=== PATIENT | female | born 1950 | race Caucasian/White ===

== ENCOUNTER → 2017-06-11 | Outpatient (CLI) | payer MEDICAID, SELFPAY | PROVIDERS: Visit Provider Nurse Practitioner Family | DX: Z51.81 Encounter for therapeutic drug level monitoring (principal) | CPT/HCPCS: 80053; 85025 ==

== ENCOUNTER 2017-08-02 18:08 | Emergency (ER) | payer MEDICAID, SELFPAY ==
[2017-08-02 19:34] VITALS: BP 124/90; PULSE 70; RESP 18; RESP 20; TEMP 36.8; O2SAT 98; O2SAT 99; BMI 75.2
--- NOTE | 2017-08-02 19:51 | HMH.EDUTC ---
[facility] [place] Disposition Clinical Impression: URI (upper respiratory infection) Qualifiers: URI type: unspecified URI Qualified Code(s): J06.9 - Acute upper respiratory infection, unspecified Disposition: Home, Self-Care Condition on Discharge: Good Instructions: Sore Throat, DI for Sinusitis, DI for Nasal Congestion Additional Instructions: * Monitor Temp. Tylenol and/or Ibuprofen as needed. ER if fever is no less than 101 despite alternating Tylenol and Ibuprofen * Encourage fluids, water, Gatorade, powerade, pedialyte if infant/toddler/or child * Warm salt water gargles for throat irritation *Warm fluids *Sore throat lozenges *Sleep elevated *humidifier or vaporizer Lots of rest Increase fluids, water, Gatorade, powerade Follow up IMMEDIATELY for new or worsening of symptoms OR no noticeable improvement over the next 48-72 hours. 911 immediately for any life threatening symptoms such as chest pain or difficulty breathing Prescriptions: Azithromycin [Z-Hay 250mg Tab] 250 mg PO UD DOSE PK #6 tab predniSONE [Prednisone 20mg Tab] 20 mg PO BID #10 tab Referrals: Lele Blanca MD [Primary Care Provider] - Time of Disposition: 20:39 Medical Decision Making - Medical Records Medical records reviewed: Yes: I reviewed the patient's medical records. Vital Signs: 08/02/17 19:34 Temperature 98.3 F Temperature Source Oral Pulse Rate [Radial] 70 Respiratory Rate 20 Blood Pressure [Right Arm] 124/90 Blood Pressure Mean [Right Arm] 101 Blood Pressure Source [Right Arm] Automatic Cuff Blood Pressure Position [Right Arm] Sitting 02 Sat by Pulse Oximetry 99 Oxygen Delivery Method Room Air - Lab Data Lab Results 08/02/17 19:33: Influenza Type A Ag Negative, Influenza Type B Ag Negative - Dylan Inquiry Pt receiving controlled substance: No Dylan was queried for this patient: No - Reevaluation(s) Reevaluation #1: Pharmacy paged x 2 awaiting call back Time: 20:35 Reevaluation #3: Still no call back from pharmacy Consulted with ER physician and family Doctor Dr Blanca and advised to give patient Azithromycin and Prednisone and have her follow up in the clinic on Thursday [facility] [place] HPI - General Stated complaint: cough, losing voice Mode of Arrival: Ambulatory Source of Information: Patient HEENT Symptoms (Recalled from RN notes): Yes Resp Symptoms (Recalled from RN notes): No Skin Symptoms (Recalled from RN notes): No MS Symptoms (Recalled from RN notes): No Functional Status (Recalled from RN notes): GOOD - History of Present Illness Provider Complaint: Patient states that she has been having sinus pain and pressure like feeling in her sinuses along with cough, congestion along with sore throat and irritation State that she was worried that she may have the flu but feels like she may be having sinus issues again too - Related Data Home Medications Medication Instructions Recorded Confirmed albuterol sulfate HFA 90 2 puff INHALATION Q6H 07/08/17 mcg/actuation aerosol inhaler aspirin 81 mg tablet,delayed 81 mg PO QDAY 07/08/17 release bisoprolol fumarate 5 mg tablet 5 mg PO QDAY 07/08/17 famotidine 20 mg tablet 20 mg PO BID 07/08/17 fluticasone 50 mcg/actuation nasal 50 mcg INTRANASAL ONCE 07/08/17 spray,suspension folic acid 1 mg tablet 1 mg PO QDAY 07/08/17 hydroxychloroquine 200 mg tablet 200 mg PO QDAY 07/08/17 loratadine 10 mg tablet 10 mg PO QDAY 07/08/17 losartan 100 mg tablet 100 mg PO QDAY 07/08/17 methotrexate sodium 2.5 mg tablet 20 mg PO QWEEK tab 07/08/17 Previous Rx's Medication Instructions Recorded Azithromycin [Z-Hay 250mg Tab] 250 mg PO UD DOSE PK #6 tab 08/02/17 predniSONE [Prednisone 20mg 20 mg PO BID #10 tab 08/02/17 Tab] Allergies Allergy/AdvReac Type Severity Reaction Status Date / Time No Known Allergies Allergy Unverified 06/09/17 15:20 - Worker's Comp Is this a Worker's Comp case?: No Is this an H Worker's Comp?:
[2017-08-02 19:55] LABS: UTC Influenza A Antigen Negative (Negative); UTC Influenza B Antigen Negative (Negative)
--- NOTE | 2017-08-02 20:00 | ED_ITS ---
[facility] [place] Disposition Clinical Impression: URI (upper respiratory infection) Qualifiers: URI type: unspecified URI Qualified Code(s): J06.9 - Acute upper respiratory infection, unspecified Disposition: Home, Self-Care Condition on Discharge: Good Instructions: Sore Throat, DI for Sinusitis, DI for Nasal Congestion Additional Instructions: * Monitor Temp. Tylenol and/or Ibuprofen as needed. ER if fever is no less than 101 despite alternating Tylenol and Ibuprofen * Encourage fluids, water, Gatorade, powerade, pedialyte if infant/toddler/or child * Warm salt water gargles for throat irritation *Warm fluids *Sore throat lozenges *Sleep elevated *humidifier or vaporizer Lots of rest Increase fluids, water, Gatorade, powerade Follow up IMMEDIATELY for new or worsening of symptoms OR no noticeable improvement over the next 48-72 hours. 911 immediately for any life threatening symptoms such as chest pain or difficulty breathing Prescriptions: Azithromycin [Z-Hay 250mg Tab] 250 mg PO UD DOSE PK #6 tab predniSONE [Prednisone 20mg Tab] 20 mg PO BID #10 tab Referrals: Lele Blanca MD [Primary Care Provider] - Time of Disposition: 20:39 Medical Decision Making - Medical Records Medical records reviewed: Yes: I reviewed the patient's medical records. Vital Signs: 08/02/17 19:34 Temperature 98.3 F Temperature Source Oral Pulse Rate [Radial] 70 Respiratory Rate 20 Blood Pressure [Right Arm] 124/90 Blood Pressure Mean [Right Arm] 101 Blood Pressure Source [Right Arm] Automatic Cuff Blood Pressure Position [Right Arm] Sitting 02 Sat by Pulse Oximetry 99 Oxygen Delivery Method Room Air - Lab Data Lab Results 08/02/17 19:33: Influenza Type A Ag Negative, Influenza Type B Ag Negative - Dylan Inquiry Pt receiving controlled substance: No Dylan was queried for this patient: No - Reevaluation(s) Reevaluation #1: Pharmacy paged x 2 awaiting call back Time: 20:35 Reevaluation #3: Still no call back from pharmacy Consulted with ER physician and family Doctor Dr Blanca and advised to give patient Azithromycin and Prednisone and have her follow up in the clinic on Thursday [facility] [place] HPI - General Stated complaint: cough, losing voice Mode of Arrival: Ambulatory Source of Information: Patient HEENT Symptoms (Recalled from RN notes): Yes Resp Symptoms (Recalled from RN notes): No Skin Symptoms (Recalled from RN notes): No MS Symptoms (Recalled from RN notes): No Functional Status (Recalled from RN notes): GOOD - History of Present Illness Provider Complaint: Patient states that she has been having sinus pain and pressure like feeling in her sinuses along with cough, congestion along with sore throat and irritation State that she was worried that she may have the flu but feels like she may be having sinus issues again too - Related Data Home Medications Medication Instructions Recorded Confirmed albuterol sulfate HFA 90 2 puff INHALATION Q6H 07/08/17 mcg/actuation aerosol inhaler aspirin 81 mg tablet,delayed 81 mg PO QDAY 07/08/17 release bisoprolol fumarate 5 mg tablet 5 mg PO QDAY 07/08/17 famotidine 20 mg tablet 20 mg PO BID 07/08/17 fluticasone 50 mcg/actuation nasal 50 mcg INTRANASAL ONCE 07/08/17 spray,suspension folic acid 1 mg tablet 1 mg PO QDAY 07/08/17 hydroxychloroquine 200 mg tablet 200 m
--- NOTE | 2017-08-02 20:16 | PC.NURSE ---
PHARMACY HAS BEEN PAGED TWICE. 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 WE STILL HAVE NOT RECEIVED A CALL BACK.
--- NOTE | 2017-08-02 20:37 | PC.NURSE ---
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
[2017-08-02 20:43] VITALS: BP 124/90; PULSE 70; RESP 20; TEMP 36.8; O2SAT 99
== END 2017-08-02 20:46 | disposition home or self-care (01) ==
PROVIDERS: Emergency Provider Nurse Practitioner; Family Provider Emergency Medicine; PCP Emergency Medicine
DX: J06.9 Acute upper respiratory infection, unspecified (principal); I10 Essential (primary) hypertension; E78.5 Hyperlipidemia, unspecified
CPT/HCPCS: 87804; 99202

== ENCOUNTER → 2018-05-17 11:21 | Outpatient (CLI) | payer MEDICARE, SELFPAY ==
--- NOTE | 2018-05-17 11:24 | XR_ITS ---
XR chest 2V HISTORY: Cough and congestion ITS.REASON: Cough ORDERING PHYSICIAN: LILO Brooke PATIENT AGE: 67 years COMPARISON: 01/15/2018 FINDINGS: The cardiomediastinal silhouette and pulmonary vascularity are within normal limits. The lungs are clear without infiltrates, suspicious nodules, or pleural effusions. No acute bony abnormalities. IMPRESSION: Negative chest, no acute finding
== END ==
PROVIDERS: PCP Physician Assistant; Visit Provider Physician Assistant
DX: R05 Cough (principal)
CPT/HCPCS: 71046; 87070; 87205

== ENCOUNTER → 2018-05-17 13:23 | Outpatient (CLI) | payer MEDICARE, SELFPAY | PROVIDERS: Visit Provider Physician Assistant | DX: R05 Cough (principal) ==

== ENCOUNTER → 2018-06-07 09:20 | Outpatient (CLI) | payer MEDICARE, SELFPAY ==
[2018-06-07 10:52] LABS: Alanine Aminotransferase 27 U/L (12-78); Albumin Level 3.8 gm/dL (3.4-5.0); Alkaline Phosphatase 92 U/L (46-116); Aspartate Amino Transferase 15 U/L (15-37); Bilirubin,Direct 0.2 mg/dL (0.0-0.2); Bilirubin,Indirect 0.3 mg/dL (0.0-0.9); Bilirubin,Total 0.5 mg/dL (0.2-1.0); Chol/HDL Ratio 3.8 (1-3.5); Cholesterol 157 mg/dL (140-200); HDL Cholesterol 41 mg/dL (29-89); LDL Cholesterol 93 mg/dL (0-130); Total Protein,Serum 6.7 gm/dL (6.4-8.2); Triglycerides 116 mg/dL (30-200); VLDL Cholesterol 23 mg/dL (0-40)
== END ==
PROVIDERS: Visit Provider Internal Medicine Cardiovascular Disease
DX: E78.5 Hyperlipidemia, unspecified (principal); I10 Essential (primary) hypertension
CPT/HCPCS: 36415; 80061; 80076

== ENCOUNTER → 2019-02-15 09:38 | Outpatient (CLI) | payer MEDICARE, SELFPAY ==
--- NOTE | 2019-02-15 09:41 | US_ITS ---
APPROVED REPORT [employer]: Mara Vallejo RDCS Indications Claudication: Rest Pain: skin changes Risk Factors Hypertension History of Smoking Pressures/Indices Right Indices Left Indices Brachial 155.00 mmHg Brachial 168.00 mmHg Low Thigh 145.00 mmHg 0.86 Low Thigh 138.00 mmHg 0.82 Calf 160.00 mmHg 0.95 Calf 168.00 mmHg 1.00 Ankle(PT) 172.00 mmHg 1.02 Ankle(PT) 173.00 mmHg 1.03 Ankle(DP) 160.00 mmHg 0.95 Ankle(DP) 157.00 mmHg 0.93 Digit 104.00 mmHg 0.62 Digit 112.00 mmHg 0.67 Findings R NICKOLAS 1.0 L NICKOLAS 1.0 R TBI .6 L TBI .7 Conclusion NORMAL Electronically signed by : Jovon Snider MD 02/15/2019 19:16:55
--- NOTE | 2019-02-15 10:04 | XR_ITS ---
PROCEDURE: XR FOOT WT BEARING LT 3V CLINICAL INDICATION: pain COMPARISON: No exams were available for comparison FINDINGS: No fracture or dislocation. No lytic or blastic change. There is normal mineralization. The joint spaces are well-preserved. No significant degenerative/arthritic changes. No erosive changes evident. Other findings:None. IMPRESSION: No acute findings. Dictated by: Jovon Snider MD 02/15/2019 11:01 Signed by: <Electronically signed by Jovon Snider MD in [place]> 02/15/2019 11:01
--- NOTE | 2019-02-15 10:04 | XR_ITS ---
PROCEDURE: XR FOOT WT BEARING RT 3V CLINICAL INDICATION: pain COMPARISON: No exams were available for comparison FINDINGS: No fracture or dislocation. No lytic or blastic change. There is normal mineralization. The joint spaces are well-preserved. No significant degenerative/arthritic changes. No erosive changes evident. Other findings:None. IMPRESSION: No acute findings. Dictated by: Jovon Snider MD 02/15/2019 11:02 Signed by: <Electronically signed by Jovon Snider MD in [place]> 02/15/2019 11:02
== END ==
PROVIDERS: PCP Emergency Medicine; Visit Provider Podiatrist
DX: R09.89 Other specified symptoms and signs involving the circulatory and respiratory systems (principal); M79.672 Pain in left foot; M79.671 Pain in right foot
CPT/HCPCS: 73630; 93923

== ENCOUNTER 2019-11-01 19:37 | Emergency (ER) | payer MEDICARE, SELFPAY ==
[2019-11-01 19:38] VITALS: BP 127/75; PULSE 100; RESP 19; TEMP 36.8; O2SAT 98; BMI 31.0
--- NOTE | 2019-11-01 19:50 | XR_ITS ---
PROCEDURE: XR THORACIC SPINE 3V CLINICAL INDICATION: FALL Posttraumatic pain COMPARISON: CXR2V XR chest 2V from 01/15/2018 FINDINGS: There is mild compression deformity involving what appears to represent T6 which appears slightly greater than when compared to a prior lateral chest radiograph of 01/16/2018. No obvious retropulsion. There is mild degenerative disc disease in the mid and upper thoracic spine. IMPRESSION: Degenerative changes with compression deformity of T6 of approximately 25 percent without obvious retropulsion. MRI may confirm if this is acute or chronic. Dictated by: Jovon Snider MD 11/02/2019 07:40 Electronically signed by Jovon Snider MD in [place] 11/02/2019 07:40
--- NOTE | 2019-11-01 19:59 | HMH.EDUTC ---
[facility] [place] Disposition Clinical Impression: Back pain Qualifiers: Back pain location: back pain in unspecified location Chronicity: unspecified Back pain laterality: unspecified Qualified Code(s): M54.9 - Dorsalgia, unspecified Disposition: Home, Self-Care Condition on Discharge: Good Instructions: Contusion, Low Back Pain, DI for Low Back Pain, DI for Contusion, DI for Chronic Pain -- Adult, DI for Thoracic Back Pain Additional Instructions: *Ibuprofen sol 6 hours with meal as needed for pain/inflammation if your doctor has told you that you can take it, if you cannot take Ibuprofen/Motrin then take Tylenol *Ice 20 minutes every 2 hours for the first 48 hours after the initial injury followed by moist heat every 20 minutes 3-4 times a day to affected area You may try over the counter Muscle rubs like [place] or Biofreeze, these may help with muscle tension and soreness associated with muscles *Keep this area active, no movement leads to more stiffness, However take it easy and avoid heavy lifting pushing or pulling *Follow up with you family doctor if no improvement for further treatment Return if needed Straight to ER if any life threatening symptoms You may call back to the [facility] tomorrow for your official reading of your xray Referrals: Roland Reddy APRN [Primary Care Provider] - As needed Time of Disposition: 21:09 Medical Decision Making - Dylan Inquiry Pt receiving controlled substance: No Dylan was queried for this patient: No Vital Signs: 11/01/19 19:38 11/01/19 21:06 Temperature 98.2 F 98.2 F Temperature Source Oral Oral Pulse Rate 100 H Pulse Rate [Radial] 100 H Respiratory Rate 19 19 Blood Pressure 127/75 Blood Pressure [Right Arm] 127/75 Blood Pressure Mean [Right Arm] 92 Blood Pressure Source Automatic Cuff Blood Pressure Source [Right Arm] Automatic Cuff Blood Pressure Position Sitting Blood Pressure Position [Right Arm] Sitting 02 Sat by Pulse Oximetry 98 Oxygen Delivery Method Room Air Room Air Orders (Tests/Meds): ED MEDICATIONS Discontinued Medications Generic Name Dose Route Start Last Admin Trade Name Freq PRN Reason Stop Dose Admin Methylprednisolone Sodium Succinate 125 mg 11/01/19 21:05 11/01/19 21:05 Solu-Medrol 125mg/2ml Vial IM 11/01/19 21:06 125 mg ONCE ONE Administration ORDERS Category Date Time Status XR lumbar spine 2-3V Stat Exams 11/01/19 20:00 Taken XR thoracic spine 3V Stat Exams 11/01/19 19:50 Taken - Radiology Data #1 Image(s): T-Spine Image Reviewed: Yes I reviewed the patient's radiology image w/the ED provider Discussed with Dr Blanca, no acute fracture, chronic changes #2 Image(s): L-Spine Image Reviewed: Yes I reviewed the patient's radiology image w/the ED provider Discussed with Dr Blanca no acute findings, chronic changes - Reevaluation(s) Time: 20:00 Reevaluation #1: Requested ER physician to view xrays advised Physician unavailable at this time awaiting call back Time: 21:04 Reevaluation #3: Patient reports that she has taken SoluMedrol before without complications or reactions patient still refusing medication for pain states that she is ok right now [facility] [place] HPI - General Stated complaint: AO [id number] fellk injured back and head Time Seen by Provider: 11/01/19 19:59 Mode of Arrival: Ambulatory Source of Information: Patient Limitations: No Limitations Description of Symptoms (Recalled from Triage Doc. by RN): fell at home on thursday HEENT Symptoms (Recalled from RN notes): No Resp Symptoms (Recalled from RN notes): No Skin Symptoms (Recalled from RN notes): No MS Symptoms (Recalled from RN notes): Yes Functional Status (Recalled from RN notes): wnl - History of Present Illness Provider Complaint: Patient state that she fell at home last Thu. State that she landed on her back Denies LOC or head injury. States that ever since she has been having pain in her mid and lower back area States that she
--- NOTE | 2019-11-01 20:00 | XR_ITS ---
PROCEDURE: XR LUMBAR SPINE 2-3V CLINICAL INDICATION: FALL Posttraumatic pain COMPARISON: No exams were available for comparison FINDINGS: There is degenerative disc disease at L5-S1. There is 5 mm anterolisthesis of L4 on L5. No acute fracture or dislocation is evident. No lytic or blastic change. There are mild facet arthritic changes at the lumbosacral junction. There is generalized vascular calcification. IMPRESSION: Degenerated changes as detailed above, no acute finding Dictated by: Jovon Snider MD 11/02/2019 07:38 Electronically signed by Jovon Snider MD in [place] 11/02/2019 07:38
[2019-11-01 21:06] VITALS: BP 127/75; PULSE 100; RESP 19; TEMP 36.8; O2SAT 98
== END 2019-11-01 21:12 | disposition home or self-care (01) ==
PROVIDERS: Emergency Provider Nurse Practitioner; PCP Nurse Practitioner Family
DX: M54.9 Dorsalgia, unspecified (principal); W01.0XXA Fall on same level from slipping, tripping and stumbling without subsequent striking against object, initial encounter; Y92.019 Unspecified place in single-family (private) house as the place of occurrence of the external cause; K21.9 Gastro-esophageal reflux disease without esophagitis; I10 Essential (primary) hypertension; E78.5 Hyperlipidemia, unspecified; J45.909 Unspecified asthma, uncomplicated; Z87.891 Personal history of nicotine dependence; Z79.899 Other long term (current) drug therapy
CPT/HCPCS: G0463; 72072; 72100; 96372; 99202

== ENCOUNTER 2019-11-08 11:57 | Emergency (ER) | payer MEDICARE, SELFPAY ==
[2019-11-08 11:59] VITALS: BP 154/80; PULSE 97; RESP 20; TEMP 36.6; O2SAT 98; BMI 34.9
--- NOTE | 2019-11-08 12:10 | ECG_ITS ---
APPROVED REPORT Exam: Resting ECG HR:80 bpm ECG Measurements Heart Rate 80 AXES IL 102 P 46 QRSd 76 QRS 52 QT 376 T 82 QTc 433 <Conclusion> Sinus rhythm with short IL Nonspecific ST and T wave abnormality Abnormal ECG Electronically signed by : Jaden Newman, 11/09/2019 08:27:11
--- NOTE | 2019-11-08 12:14 | HMH.EDGENADL ---
ED Disposition Clinical Impression: Cholelithiasis Qualifiers: Cholelithiasis location: gallbladder Cholecystitis presence: without cholecystitis Biliary obstruction: without biliary obstruction Qualified Code(s): K80.20 - Calculus of gallbladder without cholecystitis without obstruction Disposition: Home, Self-Care Condition on Discharge: Good Instructions: Fat-Restricted Diet, DI for Gallstones Additional Instructions: Follow-up with surgery, Dr. Cornell, call today to make appointment. Low-fat diet. Percocet and Zofran as needed for pain and nausea. Return to the emergency room if uncontrollable abdominal pain, vomiting, fever, or jaundice. Prescriptions: Oxycodone HCl/Acetaminophen [Percocet 5/325mg tablet] 1 tab PO Q6HP PRN #10 tab PRN Reason: Moderate To Severe Pain Transmission Status: Received by [facility] Ondansetron [Zofran 4mg ODT] 4 mg PO TIDP PRN #10 tab.rapdis PRN Reason: Nausea And Vomiting Transmission Status: [facility] Referrals: Lele Blanca MD [Primary Care Provider] - Raoul Cornell MD [Staff Physician] - - Critical Care Critical Care Time: No Attestation: On , the high probability of a clinically significant, sudden or life threatening deterioration of the following system(s) required my full and direct attention, intervention and personal management. The time I documented below is in addition to time spent performing reported procedures but includes the following listed in this critical care notation. Medical Decision Making - Medical Records Medical records reviewed: Yes: I reviewed the patient's medical records. - Dylan Inquiry Pt receiving controlled substance: Yes Dylan was queried for this patient: No Reason not queried -: Emergent pt cond-no time Risks and benefits of using a controlled substance: were not discussed with pt by me Vital Signs: 11/08/19 11:59 11/08/19 14:34 Temperature 97.9 F 98.6 F Temperature Source Oral Oral Pulse Rate 66 Pulse Rate [Right] 97 H Respiratory Rate 20 16 Blood Pressure 150/63 H Blood Pressure [Right Arm] 154/80 H Blood Pressure Mean [Right Arm] 104 Blood Pressure Source Automatic Cuff Blood Pressure Position Sitting 02 Sat by Pulse Oximetry 98 Oxygen Delivery Method Room Air - Lab Data Lab results reviewed: Yes: I reviewed the patient's lab results. Lab Results 11/08/19 12:00: Urine Color Yellow, Urine Appearance Clear, Urine pH 5.5, Ur Specific [place] >= 1.030, Urine Protein Negative, Urine Glucose (UA) Negative, Urine Ketones Negative, Urine Blood Negative, Urine Nitrate Negative, Urine Bilirubin Negative, Urine Urobilinogen 0.2, Ur Leukocyte Esterase Negative, Urine RBC 3-5, Urine WBC Occasional, Ur Squamous Epith Cells 5-10, Ur Transition Epith Cell Occ, Urine Bacteria None 11/08/19 12:18: WBC 7.0, RBC 3.87 L, Hgb 12.5, Hct 39.6, MCV 102.2 H, MCH 32.3 H, MCHC 31.6 L, RDW 15.9, Plt Count 245, MPV 9.4, Neut % (Auto) 79.5, Lymph % (Auto) 14.7, [place] % (Auto) 3.6, Eos % (Auto) 1.5, Baso % (Auto) 0.6, Neut # (Auto) 5.5, Lymph # (Auto) 1.0, [place] # (Auto) 0.3, Eos # (Auto) 0.1, Baso # (Auto) 0.0 11/08/19 12:18: Sodium 139, Potassium 4.1, Chloride 105, Carbon Dioxide 27, Anion Gap 11.1, BUN 17, Creatinine 1.00, Estimated Creat Clear 83, Estimated GFR 55 L, Est GFR ( Amer) 67, Glucose 166 H, Calcium 9.0, Total Bilirubin 1.0, AST 74 H, ALT 35, Alkaline Phosphatase 162 H, Troponin I < 0.01, Total Protein 7.4, Albumin 4.1, Globulin 3.3 H, Albumin/Globulin Ratio 1.2, Amylase 147 H, Lipase 268 Result diagrams: 11/08/19 12:18 11/08/19 12:18 Orders (Tests/Meds): ED MEDICATIONS Discontinued Medications Generic Name Dose Route Start Last Admin Trade Name Freq PRN Reason Stop Dose Admin Famotidine 20 mg 11/08/19 12:21 11/08/19 12:35 Pepcid 20mg/2ml Vial IV 11/08/19 12:22 20 mg ONCE ONE Administration Ioversol 75 ml 11/08/19 13:34 11/08/19 13:35 Rad-Op
--- NOTE | 2019-11-08 12:21 | CT_ITS ---
PROCEDURE: CT ABDOMEN PELVIS W CON CLINICAL INDICATION: abd pain COMPARISON: ABDPELW/O CT ABD PELVIS W/O CONTRAST from 01/24/2017 TECHNIQUE: IV Contrast: 75ML OPTIRAY 350 Oral Contrast none given Axial images obtained with sagittal and coronal reformats. All CT scans at the facility use one or more dose reduction, viz: automated exposure control, ma/kV adjustment per patient size (including targeted exams where dose is matched to indication, i.e. head), or iterative reconstruction technique. FINDINGS: Lower thorax: No acute finding ABDOMEN: Liver: No masses or biliary dilatation. Gallbladder: The gallbladder is moderately distended and showing 3-4 small calcified gallstones near the apex of the gallbladder. Pancreas: No masses or peripancreatic fluid collections. Spleen: unremarkable Adrenals: unremarkable Kidneys/ureters: The kidneys are normal size and show symmetrical function. There is a small benign-appearing cortical cyst upper pole right kidney measuring 1.1 cm in diameter. ABDOMEN & PELVIS: Stomach bowel: The stomach is moderately distended with ingested food particles and fluid. The small bowel appears normal. The appendix is normal in caliber and partially air-filled. There is a moderately large amount stool in the cecum and ascending colon with minimal scattered stool and gas seen in the remainder of the colon. There is mild diverticulosis of the lower descending and sigmoid colon but there is no evidence of diverticulitis. Peritoneum: No abnormal fluid collections. No obvious inflammatory changes. No free air. Lymph nodes: No enlarged lymph nodes apparent. Vasculature: There is minimal scattered arteriosclerotic calcification of the lower abdominal aorta and proximal common iliac arteries. There is no aneurysm. Bones: There is disc space narrowing and anterior osteophytic spurring at the L5-S1 level PELVIS: Reproductive: unremarkable Bladder: The urinary bladder is partially decompressed but otherwise appears normal. There is no free fluid in the cul-de-sac. Appendix: Normal IMPRESSION: Cholelithiasis with no findings to suggest acute cholecystitis, mild diffuse diverticulosis lower descending and sigmoid colon without evidence of diverticulitis. Dictated by: Dr. Rasheed Lu MD 11/08/2019 13:[address] Rasheed Lu MD in [place] 11/08/2019 13:55
[2019-11-08 12:27] LABS: Microscopic, Urine URINE MICROSCOPIC (MICROSCOPIC)
[2019-11-08 12:28] LABS: Appearance,Urine CLEAR (Clear); Bilirubin,Urine Negative (Negative); Blood, Urine Negative (Negative); Color,Urine YELLOW (Yellow); Glucose,Urine (UA) Negative (Negative); Ketones,Urine Negative (Negative); Leukocyte Esterase,Urine Negative (Negative); Nitrate,Urine Negative (Negative); PH,Urine 5.5 (5.0-8.5); Protein,Urine Negative (Negative); Specific Gravity, Urine >= 1.030 (1.005-1.030); Urobilinogen,Urine 0.2 EU/dl (0.2)
[2019-11-08 12:30] LABS: Basophils % 0.6 % (0.1-2.0); Chloride 105 mmol/L (98-107); Eosinophils # 0.1 K/mm3 (0.0-0.4); Eosinophils % 1.5 % (0.1-12.0); Hematocrit 39.6 % (37.0-47.0); Hemoglobin 12.5 g/dL (12.2-16.2); Lymphocytes % 14.7 % (10-50); Mean Corpuscular HGB Conc 31.6 g/dL (31.8-35.4); Mean Corpuscular Hemoglobin 32.3 pg (27.0-31.2); Mean Corpuscular Volume 102.2 fl (81-99); Mean Platelet Volume 9.4 fl (7.4-10.4); Monocytes # 0.3 K/mm3 (0.1-1.0); Monocytes % 3.6 % (1.7-9.3); Neutrophils # 5.5 K/mm3 (1.8-7.8); Neutrophils % 79.5 % (37.0-80.0); Platelet Count 245 K/mm3 (142-424); Potassium 4.1 mmoL/L (3.5-5.1); Red Blood Count 3.87 M/mm3 (4.20-5.40); Red Cell Distribution Width 15.9 % (11.5-17.5); Sodium 139 mmol/L (136-145)
[2019-11-08 12:32] LABS: Amylase 147 U/L (30-110)
[2019-11-08 12:33] LABS: Alanine Aminotransferase 35 U/L (12-78); Albumin Level 4.1 g/dl (3.5-5.0); Albumin/Globulin Ratio 1.2 (1.1-1.8); Alkaline Phosphatase 162 U/L (38-126); Anion Gap 11.1 mEq/L (5-15); Aspartate Amino Transferase 74 U/L (14-36); Blood Urea Nitrogen 17 mg/dl (7-17); Carbon Dioxide 27 mmol/L (22.0-30.0); Creatinine Clearance Estimated 83 mL/min (50-200); Estimated Glomerular Filt Rate 55 ml/min (>60); GFR (African American) 67 ML/MIN (>60); Globulin 3.3 g/dL (1.3-3.2); Glucose 166 mg/dl (74-100); Lipase 268 U/L (23-300); Total Protein,Serum 7.4 g/dl (6.3-8.2)
[2019-11-08 12:47] LABS: Troponin I < 0.01 ng/ml (0.00-0.034)
[2019-11-08 13:08] LABS: Transitional Epi Cells,Urine OCC #/lpf (0-3); WBC,Urine Occasional #/hpf (0-3)
[2019-11-08 14:34] VITALS: BP 150/63; PULSE 66; RESP 16; TEMP 37; O2SAT 98
== END 2019-11-08 14:35 | disposition home or self-care (01) ==
PROVIDERS: Emergency Provider Emergency Medicine; PCP Emergency Medicine
DX: K80.20 Calculus of gallbladder without cholecystitis without obstruction (principal); K21.9 Gastro-esophageal reflux disease without esophagitis; E78.5 Hyperlipidemia, unspecified; I10 Essential (primary) hypertension; J45.909 Unspecified asthma, uncomplicated; Z87.891 Personal history of nicotine dependence
CPT/HCPCS: 74177; 80053; 81001; 82150; 83690; 84484; 85025; 93005; 96374; 96375; 99283; J2405; Q9967

== ENCOUNTER → 2019-11-17 07:48 | Outpatient (CLI) | payer MEDICARE, SELFPAY ==
--- NOTE | 2019-11-17 07:48 | US_ITS ---
PROCEDURE: US GALLBLADDER CLINICAL INDICATION: Right upper quad pain Nausea, right upper quadrant pain COMPARISON: No exams were available for comparison FINDINGS: Pancreas: Unremarkable/Not well seen Liver: Unremarkable. There is appropriate direction of blood flow within a non dilated portal vein. Right kidney: Unremarkable appearing. No hydronephrosis. Gallbladder: Gallstones are present along with sludge in the gallbladder. No gallbladder wall thickening, pericholecystic fluid, or biliary dilatation is evident. Common bile duct is 5 mm. IMPRESSION: Cholelithiasis with gallbladder sludge Dictated by: Jovon Snider MD 11/17/2019 13:49 Electronically signed by Jovon Snider MD in [place] 11/17/2019 13:49
== END ==
PROVIDERS: PCP Emergency Medicine; Visit Provider Surgery
DX: K80.20 Calculus of gallbladder without cholecystitis without obstruction (principal)
CPT/HCPCS: 76705

== ENCOUNTER → 2019-11-20 09:55 | Outpatient (CLI) | payer MEDICARE, SELFPAY ==
[2019-11-20 10:39] LABS: Basophils # 0.1 K/mm3 (0-0.2); Basophils % 2.1 % (0.1-2.0); Eosinophils # 0.3 K/mm3 (0.0-0.4); Eosinophils % 6.5 % (0.1-12.0); Hematocrit 39.7 % (37.0-47.0); Hemoglobin 13.2 g/dL (12.2-16.2); Lymphocytes # 1.5 K/mm3 (0.7-4.5); Lymphocytes % 33.7 % (10-50); Mean Corpuscular HGB Conc 33.2 g/dL (31.8-35.4); Mean Corpuscular Volume 102.5 fl (81-99); Monocytes # 0.4 K/mm3 (0.1-1.0); Monocytes % 7.8 % (1.7-9.3); Neutrophils # 2.2 K/mm3 (1.8-7.8); Neutrophils % 49.9 % (37.0-80.0); Platelet Count 194 K/mm3 (142-424); Red Blood Count 3.87 M/mm3 (4.20-5.40); Red Cell Distribution Width 15.5 % (11.5-17.5); White Blood Count 4.5 K/mm3 (4.8-10.8)
[2019-11-20 10:45] LABS: Chloride 108 mmol/L (98-107); Potassium 3.9 mmoL/L (3.5-5.1); Sodium 140 mmol/L (136-145)
[2019-11-20 10:47] LABS: Amylase 299 U/L (30-110)
[2019-11-20 10:48] LABS: Alanine Aminotransferase 24 U/L (12-78); Albumin Level 4.2 g/dl (3.5-5.0); Albumin/Globulin Ratio 1.3 (1.1-1.8); Alkaline Phosphatase 161 U/L (38-126); Anion Gap 9.9 mEq/L (5-15); Aspartate Amino Transferase 32 U/L (14-36); Bilirubin,Total 0.8 mg/dl (0.2-1.3); Blood Urea Nitrogen 13 mg/dl (7-17); Calcium 9.4 mg/dl (8.4-10.2); Carbon Dioxide 26 mmol/L (22.0-30.0); Estimated Glomerular Filt Rate 55 ml/min (>60); GFR (African American) 67 ML/MIN (>60); Globulin 3.2 g/dL (1.3-3.2); Glucose 120 mg/dl (74-100); Lipase 317 U/L (23-300); Total Protein,Serum 7.4 g/dl (6.3-8.2)
[2019-11-20 11:11] LABS: Coronavirus 19 IgG Antibody Negative (Negative); Coronavirus 19 IgM Antibody Negative (Negative)
== END ==
PROVIDERS: PCP Emergency Medicine; Visit Provider Surgery
DX: K80.20 Calculus of gallbladder without cholecystitis without obstruction (principal); Z03.818 Encounter for observation for suspected exposure to other biological agents ruled out
CPT/HCPCS: 80053; 82150; 83690; 85025; 86328

== ENCOUNTER 2019-11-23 08:33 | Day surgery (SDC) | payer MEDICARE, SELFPAY ==
[2019-11-22 09:28] VITALS: BMI 33.3
[2019-11-23] VITALS (18 sets, daily range): BP systolic 85–140; BP diastolic 47–70; PULSE 70–90; RESP 12–20; TEMP 36.1–43; O2SAT 93–99
--- NOTE | 2019-11-23 09:22 | HMH.ANESCL ---
[facility] Anesthesia Checklist - Patient Identification Patient Identification: Arm Band - Structural Data Admitted From: Home Planned Operative Procedure/s: laparoscopic cholecystectomy Consent for Planned Operative Procedure(s) Verified: Yes Verified Documents: Surgical Consent, History and Physical - NPO Status Verified Time NPO: 00:00 - Additional verifications Anesthesia Reactions: No Hx Blood Transfusions: No Blood Transfusion Reaction: No - Airway Assessment C-Spine Mobility Assessed: Yes (mp2) TMJ Mobility Assessed: Yes Dentition: Good Dentition - Neurological Assessment Level of Consciousness: Awake, Alert - Anesthesia Plan Anesthesia Risk discussed: Yes Anesthesia Plan: Verified ASA Class: II Anesthesia Type: General [facility] History I have reviewed the patient's past medical history: Yes Medical History: Reports:: Asthma, Gastroesophageal Reflux Disease(GERD), Hyperlipidemia, Hypertension Denies:: Cancer, Diabetes Mellitus Type 1, Diabetes Mellitus Type 2, Internal Pacemaker, MRSA, Seizures *Have you ever received a pneumonia vaccine?: Yes *Have you received a flu vaccine this season?: Yes Other Medical History: Reports: Other. Denies: Blood Transfusion Reaction Anesthesia experience/problems:: nac Laterality Cases: Bilateral: Other Other Surgeries: Yes: Other (back surgery in 1988). No: Pacemaker Amputation: No Fractures: No - *Social History Educational Level: Attended High School Smoking Status: Never smoker Alcohol Intake: never Alcohol Intake Frequency:: other Substance Use Type: denies use *Occupational Status:: retired Housing: house Household Members: spouse *Travel in the last 8 weeks: None Family Hx:: Unable to obtain
--- NOTE | 2019-11-23 10:54 | XR_ITS ---
PROCEDURE: XR CHOLANGIOGRAM OPERATIVE CLINICAL INDICATION: CHOLANGIOGRAM COMPARISON: No exams were available for comparison FINDINGS: Fluoroscopy time: 28 seconds Images are submitted from the intraoperative cholangiogram showing contrast injected into the cystic duct with good opacification of the common bile duct. No obstructing lesions or internal filling defects evident of the mid and distal common bile duct. Contrast does flow into the duodenum IMPRESSION: Unremarkable intraoperative cholangiogram Dictated by: Jovon Snider MD 11/23/2019 13:48 Electronically signed by Jovon Snider MD in [place] 11/23/2019 13:48
--- NOTE | 2019-11-23 11:03 | HMH.OPNOTE ---
Date of procedure: 11/23/19 Pre-op Diagnosis:: Symptomatic gallstones Post-op Diagnosis:: Same with mild pancreatitis Procedure performed:: Laparoscopic cholecystectomy with intraoperative cholangiogram Surgeon:: Raoul Cornell MD Major Assembly Inspector(s):: Cheryle Morris TEST FIXTURE DESIGNER:: Sergey George Anesthesia: GETA Estimated blood loss (mL): 25 Clinical Note:: Patient is a 68-year-old female referred for gallbladder. Her daughter works in the [place] [employer] here at [facility]. She states that she began noticing some symptomatology after she had sustained a fall with soft tissue bruising on her back about 3 or 4 weeks ago incidentally. She had been seen in the emergency department on 11/08/2019 with symptoms of right upper quadrant pain with associated nausea and belching. Her symptoms are worse postprandially. She does describe some general abdominal cramping. She states that this has been ongoing for some time but the symptoms are new. She has some associated tightness . CT scan in the emergency department revealed findings of cholelithiasis. Of note, laboratory studies revealed of abnormal amylase, alkaline phosphatase, and AST. I had her undergo preoperative ultrasound which revealed gallstones with a 5 mm common bile duct. Repeat liver function tests and amylase and lipase revealed elevated amylase as well as lipase. Plan was made for cholangiogram at the time of cholecystectomy. Operative findings:: She had some appreciable fatty infiltration of liver. She had an appreciably distended gallbladder which was obscured with omental adhesions. Operative note:: Consent was obtained and patient was taken to the operating room. She was given preoperative intravenous antibiotics. In the operating room she was placed in a supine position. General anesthesia was induced via endotracheal tube. Abdomen was prepped and draped in the standard surgical fashion. Subumbilical skin incision was made and while performing abdominal wall lift Veress needle was inserted. CO2 pneumoperitoneum was achieved to 15 mmHg. 11 mm optical trocar was inserted at the umbilicus. Initially the entire right liver was obscured by omentum. Patient was positioned in reverse Trendelenburg and left side down. A couple 5 mm trochars were inserted in the right upper abdomen. 10 mm trocar was inserted in the epigastrium. Omentum was swept inferiorly to expose the liver. She had fatty infiltration of the liver. Fundus of the gallbladder was identified and grasped retracted anteriorly. There were omental adhesions to the gallbladder. These were taken down using blunt dissection with some use of KIRK ultrasonic harmonic flaco to lyse the adhesions to the adjacent liver. Infundibulum/Jefferson's pouch of the gallbladder was retracted anterior laterally. Blunt dissection was carried out at the neck of the gallbladder bluntly incising the visceral peritoneum. There was some fatty infiltration around the neck of the gallbladder. Ultimately the cystic duct was clearly identified as was the cystic artery which was quite close proximity to the cystic duct. Cystic duct was clipped proximal to the gallbladder. Through approximately a 2 mm incision in the right upper abdomen taut cholangiocatheter introducer was inserted. Taut cholangiocatheter was then inserted. Through a small ductotomy in the cystic duct the cholangiocatheter was manipulated into the cystic duct where it was secured with a single Hemoclip. Intraoperative cholangiogram was performed with dilute contrast followed by full-strength contrast. This revealed no apparent filling defect or obstruction. Final report of cholangiogram pending at the time of this dictation. Patient was then repositioned and cholangiocatheter was removed. Cystic duct was multiply clipped and sharply divided. Cystic artery was coagulated with KIRK ultrasonic harmonic flaco and divided. Gallbladder was dissected free from the liver in
--- NOTE | 2019-11-23 11:15 | P.PN_ITS ---
[facility] Anesthesia Record Part I Intake, IV Amount: 1,500 Estimated blood loss (mL): 0 Urine output (mL): 0 Blood Pressure: 114/50 SaO2: 95 Pulse Rate: 87 Respiratory Rate: 12 Temperature: 97.7 F Patient is:: Awake, Stable Stable to PACU at:: 11:10
--- NOTE | 2019-11-23 14:45 | SUR.PHASEI ---
[id number]: no O2 applied [id number]: pt on 4L per NC [id number]: pt on 2L NC 1140: called ORIANA Plata: pt states she cannot breathe, she has O2 sat of 97%-98% on 2L nc, can we order breathing treatment? Sergey says yes, albuterol. Pt anxious 1143: called [facility] 1147: order in computer 1150: Jocelyn Whitten from [facility] in PACU, starts breathing treatment, throughout treatment pt starts spasms and then they stop. Pt anxious. 1209: pt to post op, bedside report to Jennifer Gurrola RN
--- NOTE | 2019-11-24 10:14 | HMH.ANESII ---
[facility] Anesthesia Record Part II Discharge Time: 12:09 Destination: Surgical Day Care (OP Surgery) PACU nurse assessment reviewed?: Yes Patient Condition:: Good Anesthesia Complications:: None Swallowing reflex intact?: Yes Cyanosis?: No Blood Pressure: 108/59 Pulse Rate: 82 Temperature: 97.7 F Mental Status: Alert & Oriented Pain level:: 0 Nausea and/or vomitting:: None Intake, IV Amount: 0
[2019-11-24 10:15] VITALS: BP 108/59; PULSE 82; TEMP 36.5
== END 2019-11-23 13:17 | disposition home or self-care (01) ==
LOC: OR 08:34
PROVIDERS: PCP Emergency Medicine; Visit Provider Surgery
PROC: 0FT44ZZ Resection of Gallbladder, Percutaneous Endoscopic Approach (ICD-10-PCS; CPT 47562; principal; 2019-11-23 10:00)
DX: K85.10 Biliary acute pancreatitis without necrosis or infection (principal); K76.0 Fatty (change of) liver, not elsewhere classified; J45.909 Unspecified asthma, uncomplicated; K21.9 Gastro-esophageal reflux disease without esophagitis; E78.5 Hyperlipidemia, unspecified; I10 Essential (primary) hypertension; Z87.39 Personal history of other diseases of the musculoskeletal system and connective tissue; Z87.891 Personal history of nicotine dependence; Z86.79 Personal history of other diseases of the circulatory system
CPT/HCPCS: 47563; 74300; 88304; 96374; J2405

== ENCOUNTER → 2019-12-23 15:03 | Outpatient (CLI) | payer SELFPAY ==
--- NOTE | 2019-12-23 15:04 | CT_ITS ---
PROCEDURE: CT HEART W CALCIUM SCORE CLINICAL HISTORY: atypical angina, eval for cad COMPARISON: CT ABDOMEN PELVIS W CON from 11/08/2019 TECHNIQUE: Axial images obtained with sagittal and coronal reformats. All CT scans at the facility use one or more dose reduction, viz: automated exposure control, ma/kV adjustment per patient size (including targeted exams where dose is matched to indication, i.e. head), or iterative reconstruction technique. FINDINGS: The coronary artery calcium score is 104 indicating moderate plaque burden with high cardiovascular disease risk. Incidental note is made of a small right pericardial lymph node at approximately 8 mm not significantly changed. There is mild nonspecific thickening of the GE junction. There is a faint nodular opacity in the major fissure at 4 mm and could be due to small lymph node. IMPRESSION: Moderate plaque burden with high cardiovascular disease risk Dictated by: Jovon Snider MD 12/23/2019 16:20 Electronically signed by Jovon Snider MD in [place] 12/23/2019 16:20
== END ==
PROVIDERS: PCP Emergency Medicine; Visit Provider Internal Medicine Cardiovascular Disease
DX: Z13.6 Encounter for screening for cardiovascular disorders (principal); E78.2 Mixed hyperlipidemia; I11.9 Hypertensive heart disease without heart failure; I20.8 Other forms of angina pectoris; G47.33 Obstructive sleep apnea (adult) (pediatric)
CPT/HCPCS: 75571

== ENCOUNTER → 2020-03-30 18:41 | Outpatient (CLI) | payer SELFPAY ==
[2020-03-30 19:14] LABS: Blood Urea Nitrogen 16 mg/dl (7-17); Calcium 9.3 mg/dl (8.4-10.2); Carbon Dioxide 23 mmol/L (22.0-30.0); Chloride 110 mmol/L (98-107); Estimated Glomerular Filt Rate 55 ml/min (>60); GFR (African American) 67 ML/MIN (>60); Glucose 210 mg/dl (74-100); Sodium 142 mmol/L (136-145)
[2020-03-30 20:18] LABS: Hemoglobin A1C 5.3 % (4.0-6.0)
== END ==
PROVIDERS: Visit Provider Emergency Medicine
DX: L03.115 Cellulitis of right lower limb (principal)
CPT/HCPCS: 80048; 83036; 87070; 87077; 87186; 87205

== ENCOUNTER → 2021-01-03 08:30 | Outpatient (CLI) | payer MEDICARE, SELFPAY ==
[2021-01-03 09:39] LABS: Alanine Aminotransferase 28 U/L (12-78); Albumin Level 4.2 g/dl (3.5-5.0); Alkaline Phosphatase 99 U/L (38-126); Aspartate Amino Transferase 38 U/L (14-36); Bilirubin, Conjugated 0.3 mg/dL (0.0-0.3); Bilirubin,Direct 0.7 mg/dl (0.0-0.4); Bilirubin,Total 0.7 mg/dl (0.2-1.3); Chol/HDL Ratio 3.7 (1-3.5); Cholesterol 163 mg/dl (140-200); HDL Cholesterol 44 mg/dl (40-60); Total Protein,Serum 6.9 g/dl (6.3-8.2); Triglycerides 190 mg/dl (30-150); VLDL Cholesterol 38 mg/dL (0-40)
[2021-01-03 09:50] LABS: Direct LDL Cholesterol 81.65 mg/dL (100-129)
== END ==
PROVIDERS: Visit Provider Internal Medicine Cardiovascular Disease
DX: E78.2 Mixed hyperlipidemia (principal); G47.33 Obstructive sleep apnea (adult) (pediatric); I11.9 Hypertensive heart disease without heart failure; I25.10 Atherosclerotic heart disease of native coronary artery without angina pectoris
CPT/HCPCS: 36415; 80061; 80076

== ENCOUNTER 2021-08-25 10:54 | Emergency (ER) | payer MEDICARE, SELFPAY ==
[2021-08-25 11:20] VITALS: BP 121/68; PULSE 71; RESP 20; TEMP 36.8; O2SAT 98; BMI 34.8
--- NOTE | 2021-08-25 11:42 | HMH.EDUTC ---
[facility] [place] Disposition Clinical Impression: Acute bronchitis Qualifiers: Bronchitis organism: unspecified organism Qualified Code(s): J20.9 - Acute bronchitis, unspecified Disposition: Home, Self-Care Condition on Discharge: Good Instructions: DI for Acute Bronchitis Additional Instructions: Start antibiotic today. Be sure to complete entire prescription even if feeling better Tylenol and ibuprofen as needed for pain or fever Humidifier/vaporizer/hot steamy shower Follow-up with primary care if no improvement. Follow-up immediately in the ER of the [facility] for new or worsening symptoms or no noticeable improvement over the next 48-72 hours. Stop smoking Inhaler every 4-6 hours as needed. Should help open airways improved cough, wheezing, shortness of breath Start steroids tomorrow. Helps with inflammation therefore coughing and wheezing. Follow directions on package. Prescriptions: predniSONE [Prednisone 20mg Tab] 20 mg PO BID #10 tab Transmission Status: Pending to [facility] Azithromycin [Zithromax 250mg tab] 250 mg PO DIRECTED #6 tab Transmission Status: Pending to [facility] Referrals: Lele Blanca MD [Primary Care Provider] - Time of Disposition: 11:47 Medical Decision Making - Dylan Inquiry Pt receiving controlled substance: No Vital Signs: 08/25/21 11:20 Temperature 98.2 F Temperature Source Oral Pulse Rate [Right Brachial] 71 Respiratory Rate 20 Blood Pressure [Right Arm] 121/68 Blood Pressure Mean [Right Arm] 85 Blood Pressure Source [Right Arm] Automatic Cuff Blood Pressure Position [Right Arm] Sitting 02 Sat by Pulse Oximetry 98 Oxygen Delivery Method Room Air [facility] [place] HPI - General Chief complaint: Urgent Treatment Center Stated complaint: congestion, cough Time Seen by Provider: 08/25/21 11:42 Mode of Arrival: Ambulatory Source of Information: Patient Limitations: No Limitations Description of Symptoms (Recalled from Triage Doc. by RN): PATIENT C/O COUGH AND RUNNY NOSE X 2 DAYS HEENT Symptoms (Recalled from RN notes): Yes Resp Symptoms (Recalled from RN notes): Yes Skin Symptoms (Recalled from RN notes): No MS Symptoms (Recalled from RN notes): No Functional Status (Recalled from RN notes): WNL - History of Present Illness Provider Complaint: 70 yr old female presnets for cough,congestion,wheezing and sore throat for 2 days that is getting worse - Related Data Home Medications Medication Instructions Recorded Confirmed albuterol sulfate 90 mcg/actuation 2 puff INHALATION Q6H 07/08/17 03/09/21 aerosol inhaler aspirin 81 mg tablet,delayed 81 mg PO QDAY 07/08/17 03/09/21 release folic acid 1 mg tablet 1 mg PO QDAY 07/08/17 03/09/21 cholecalciferol (vitamin D3) 100 4,000 unit PO BID 01/11/18 03/09/21 mcg (4,000 unit) capsule cetirizine 10 mg capsule 10 mg PO DAILY cap 04/28/18 03/09/21 methotrexate (PF) 7.5 mg/0.15 mL 7.5 mg SQ QWEEK 09/02/18 03/09/21 subcutaneous auto-injector fluticasone propionate 44 1 puff INHALATION BID 03/30/20 03/09/21 mcg/actuation HFA aerosol inhaler insulin syringe-needle U-100 1 mL See Rx Instructions .ROUTE 03/09/21 03/09/21 29 gauge x 1/2 .MEDSUPPLY #10 each methotrexate sodium (PF) 25 mg/mL 25 mg SQ ml 03/09/21 03/09/21 injection solution sulfasalazine 500 mg tablet 0.5 g PO tab 03/09/21 03/09/21 Previous Rx's Medication Instructions Recorded fluticasone propionate 50 50 mcg INTRANASAL DAILY #47.4 ml 07/04/19 mcg/actuation nasal spray,suspension bisoprolol fumarate 5 mg tablet 5 mg PO QDAY #90 tab 10/18/20 losartan 100 mg tablet 100 mg PO QDAY #90 tab 10/18/20 montelukast 10 mg tablet 10 mg PO QDAY #90 tab 02/27/21 cephalexin 500 mg capsule 500 mg PO Q12H 10 Days #20 cap 03/09/21 prednisone 20 mg tablet 20 mg PO BID #10 tab 03/09/21 atorvastatin 80 mg tablet 80 mg PO DAILY #30 tab 03/27/21 Azithromycin [Zithromax 250mg 250 mg PO DIRECTED #6 tab 08/25/21 tab] predniSONE [Pre
[2021-08-25 12:05] VITALS: BP 121/68; PULSE 71; RESP 20; TEMP 36.8; O2SAT 98
== END 2021-08-25 12:10 | disposition home or self-care (01) ==
PROVIDERS: Emergency Provider Nurse Practitioner Family; PCP Emergency Medicine
DX: J20.9 Acute bronchitis, unspecified (principal); R00.2 Palpitations; I10 Essential (primary) hypertension; K21.9 Gastro-esophageal reflux disease without esophagitis; E78.5 Hyperlipidemia, unspecified; J44.9 Chronic obstructive pulmonary disease, unspecified; Z79.51 Long term (current) use of inhaled steroids; Z79.4 Long term (current) use of insulin; Z79.82 Long term (current) use of aspirin; Z79.899 Other long term (current) drug therapy; Z82.49 Family history of ischemic heart disease and other diseases of the circulatory system
CPT/HCPCS: 96372; 99213; G0463; J0696

== ENCOUNTER → 2022-02-13 11:01 | Outpatient (CLI) | payer MEDICARE, SELFPAY ==
[2022-02-13 12:46] LABS: Alanine Aminotransferase 34 U/L (12-78); Alkaline Phosphatase 111 U/L (38-126); Aspartate Amino Transferase 64 U/L (14-36); Bilirubin,Direct 0.6 mg/dl (0.0-0.4); Bilirubin,Total 0.6 mg/dl (0.2-1.3); Chol/HDL Ratio 3.2 (1-3.5); Cholesterol 129 mg/dl (140-200); HDL Cholesterol 40 mg/dl (40-60); Total Protein,Serum 6.6 g/dl (6.3-8.2); Triglycerides 187 mg/dl (30-150); VLDL Cholesterol 37 mg/dL (0-40)
[2022-02-14 08:34] LABS: Direct LDL Cholesterol 62 mg/dL (100-129)
== END ==
PROVIDERS: PCP Emergency Medicine; Visit Provider Nurse Practitioner
DX: E78.2 Mixed hyperlipidemia (principal); I11.9 Hypertensive heart disease without heart failure; I25.10 Atherosclerotic heart disease of native coronary artery without angina pectoris
CPT/HCPCS: 36415; 80061; 80076

== ENCOUNTER 2022-02-14 08:00 | Emergency (ER) | payer MEDICARE, SELFPAY ==
[2022-02-14 08:36] VITALS: BP 135/69; PULSE 76; RESP 19; TEMP 36.8; O2SAT 95; BMI 35.2
--- NOTE | 2022-02-14 08:39 | EXP.UTC ---
Discharge Plan Disposition Patient Disposition: Home, Self-Care Condition: Good Prescriptions Prescriptions: New methylprednisolone 4 mg Tablets,Dose Pack 4 mg PO DIRECTED Qty: 21 0RF guaifenesin [Mucinex] 600 mg tablet extended release 12hr 600 - 1,200 mg PO BIDP PRN (Reason: Congestion) Qty: 30 0RF azithromycin [Zithromax] 250 mg tablet 250 mg PO UD DOSE PK Qty: 6 0RF Rx Instructions: Take two (2) tablets today, then one (1) tablet days #2 thru #5 No Action aspirin [Adult Low Dose Aspirin] 81 mg tablet,delayed release (DR/EC) 81 mg PO QDAY folic acid 1 mg tablet 1 mg PO QDAY albuterol sulfate [Ventolin HFA] 90 mcg/actuation HFA aerosol inhaler 2 puff INHALATION Q6H Flovent HFA 44 mcg/actuation HFA aerosol inhaler 1 puff INHALATION BID Rx Instructions: administer with spacer sulfasalazine 500 mg tablet 0.5 g PO Label Comments: TAKE 2 TABLETS BY MOUTH TWICE DAILY methotrexate sodium (PF) 25 mg/mL solution 25 mg SQ cholecalciferol (vitamin D3) 4,000 unit capsule 4,000 unit PO BID Zyrtec 10 mg capsule 10 mg PO DAILY atorvastatin 40 mg tablet 40 mg PO DAILY fluticasone propionate [Flonase Allergy Relief] 50 mcg/actuation spray,suspension 50 mcg INTRANASAL DAILY Qty: 47.4 0RF bisoprolol fumarate 5 mg tablet 5 mg PO QDAY Qty: 90 3RF losartan 100 mg tablet 100 mg PO QDAY Qty: 90 2RF Referrals Referrals: Lele Blanca MD [Primary Care Provider] - Enter time for follow up Activity Restrictions/Add. Instructions Additional Instructions/Restrictions: Drink plenty of fluids. Take tylenol or ibuprofen for pain or fever. Take the medications as directed. Follow up with your regular doctor. GO TO THE ER FOR ANY WORSENING SYMPTOMS Quarantine until you know the results of your covid-19 test. Notify your school or workplace of your results and follow their instructions regarding return to work/school. Clinical Impressions Clinical Impression: Close exposure to COVID-19 virus Instructions Patient Instructions: Coronavirus Disease 2019, Preventing the Spread of Coronavirus Discharge Instructions Discharge ED Provider[place] [facility] [place] General Stated complaint: covid tested has symptoms Mode of Arrival: Ambulatory Source of Information: Patient Limitations: No Limitations Time Seen by Provider: 02/14/22 08:28 Description of Symptoms (Recalled from Triage Doc. by RN): patient comes in with complaints of chills, cough, headache, body aches.. symptoms began yesterday. HEENT Symptoms (Recalled from RN notes): Yes Resp Symptoms (Recalled from RN notes): Yes Skin Symptoms (Recalled from RN notes): No MS Symptoms (Recalled from RN notes): No Functional Status (Recalled from RN notes): n/a History of Present Illness Provider Complaint: She states that since yesterday she has had sinus and chest congestion and low grade fever. Related Data Home Medications Medication Instructions Recorded Confirmed albuterol sulfate 90 mcg/actuation 2 puff inhalation Q6H Asthma 07/08/17 02/13/22 aerosol inhaler (Ventolin HFA) aspirin 81 mg tablet,delayed 81 mg PO QDAY heart 07/08/17 02/13/22 release (Adult Low Dose Aspirin) folic acid 1 mg tablet 1 mg PO QDAY Supplement 07/08/17 02/13/22 cholecalciferol (vitamin D3) 100 4,000 unit PO BID Supplement 01/11/18 02/13/22 mcg (4,000 unit) capsule cetirizine 10 mg capsule (Zyrtec) 10 mg PO DAILY Allergy symptoms 04/28/18 02/13/22 fluticasone propionate 44 1 puff inhalation BID 03/30/20 02/13/22 mcg/actuation HFA aerosol inhaler (Flovent HFA) methotrexate sodium (PF) 25 mg/mL 25 mg SQ 03/09/21 02/13/22 injection solution sulfasalazine 500 mg tablet 0.5 g PO 03/09/21 02/13/22 atorvastatin 40 mg tablet 40 mg PO DAILY 02/13/22 02/13/22 Previous Rx's Medication Instructions Recorded fluticasone propionate 50 50 mcg intranasal DAILY A
[2022-02-14 09:16] VITALS: BP 135/69; PULSE 76; RESP 19; TEMP 36.8
== END 2022-02-14 09:16 | disposition home or self-care (01) ==
LOC: ER 08:04 → UTC 08:08
PROVIDERS: Emergency Provider Nurse Practitioner Family; PCP Emergency Medicine
DX: U07.1 COVID-19 (principal); R50.9 Fever, unspecified; R51.9 Headache, unspecified; R05.9 Cough, unspecified; I25.10 Atherosclerotic heart disease of native coronary artery without angina pectoris; E78.5 Hyperlipidemia, unspecified; M79.10 Myalgia, unspecified site; J44.9 Chronic obstructive pulmonary disease, unspecified; Z79.51 Long term (current) use of inhaled steroids; Z79.52 Long term (current) use of systemic steroids; Z79.82 Long term (current) use of aspirin; Z79.899 Other long term (current) drug therapy; Z92.25 Personal history of immunosuppression therapy
CPT/HCPCS: 96372; 99213; C9803; G0463; J0696; U0003; U0005

== ENCOUNTER 2022-02-23 13:29 | Emergency (ER) | payer MEDICARE, SELFPAY ==
[2022-02-23 14:15] VITALS: BP 116/53; PULSE 84; RESP 20; TEMP 36.8; O2SAT 94; BMI 35.2
--- NOTE | 2022-02-23 14:35 | XR_ITS ---
PROCEDURE INFORMATION: Exam: XR Chest Exam date and time: 02/23/2022 2:34 PM Age: 71 years old Clinical indication: Shortness of breath; Additional info: SOA, HX of covid about 10 days ago TECHNIQUE: Imaging protocol: Radiologic exam of the chest. Views: 2 views. COMPARISON: CR CXR2V XR chest 2V 05/17/2018 11:38 AM FINDINGS: Lungs: No consolidation. Pleural spaces: No pleural effusion. No pneumothorax. Heart/Mediastinum: No cardiomegaly. Bones/joints: There are degenerative changes of the spine. There is been interval development of a mild to moderate compression deformity the midthoracic spine. IMPRESSION: 1. No evidence of active pulmonary disease. 2. There is been interval development of a moderate compression deformity the midthoracic spine which is of undetermined age.
--- NOTE | 2022-02-23 14:35 | EXP.UTC ---
Discharge Plan Disposition Patient Disposition: Home, Self-Care Condition: Good Prescriptions Prescriptions: No Action aspirin [Adult Low Dose Aspirin] 81 mg tablet,delayed release (DR/EC) 81 mg PO QDAY folic acid 1 mg tablet 1 mg PO QDAY albuterol sulfate [Ventolin HFA] 90 mcg/actuation HFA aerosol inhaler 2 puff INHALATION Q6H Flovent HFA 44 mcg/actuation HFA aerosol inhaler 1 puff INHALATION BID Rx Instructions: administer with spacer sulfasalazine 500 mg tablet 0.5 g PO Label Comments: TAKE 2 TABLETS BY MOUTH TWICE DAILY methotrexate sodium (PF) 25 mg/mL solution 25 mg SQ cholecalciferol (vitamin D3) 4,000 unit capsule 4,000 unit PO BID Zyrtec 10 mg capsule 10 mg PO DAILY atorvastatin 40 mg tablet 40 mg PO DAILY fluticasone propionate [Flonase Allergy Relief] 50 mcg/actuation spray,suspension 50 mcg INTRANASAL DAILY Qty: 47.4 0RF bisoprolol fumarate 5 mg tablet 5 mg PO QDAY Qty: 90 3RF losartan 100 mg tablet 100 mg PO QDAY Qty: 90 2RF Paxlovid (EUA) 300 mg (150 mg x 2)-100 mg tablet See Rx Instructions .ROUTE .COMPLEX Qty: 30 0RF Rx Instructions: take TWO 150 mg tablets of nirmatrelvir with ONE 100 mg tablet of ritonavir twice daily for 5 days Stop statin X 5 days, stop Medrol Dose Pack GFR 55 methylprednisolone 4 mg Tablets,Dose Pack 4 mg PO DIRECTED Qty: 21 0RF guaifenesin [Mucinex] 600 mg tablet extended release 12hr 600 - 1,200 mg PO BIDP PRN (Reason: Congestion) Qty: 30 0RF azithromycin [Zithromax] 250 mg tablet 250 mg PO UD DOSE PK Qty: 6 0RF Rx Instructions: Take two (2) tablets today, then one (1) tablet days #2 thru #5 Referrals Follow up/Referrals: Lele Blanca MD [Primary Care Provider] - See instructions Activity Restrictions/Add. Instructions Additional Instructions/Restrictions: Use inhaler as prescribed Follow up with Plant Safety Leader for when to start back your medication Make sure to stay hydrated Return if needed Straight to ER if any life threatening symptoms Follow up with your Family Doctor if no improvement or any worsening of symptoms Clinical Impressions Clinical Impression: Generalized body aches Discharge ED Provider: Jocelyn Bean [facility] [place] HPI General Stated complaint: body aches, sob, covid + 02/21 Mode of Arrival: Ambulatory Source of Information: Patient Limitations: No Limitations Time Seen by Provider: 02/23/22 14:37 Description of Symptoms (Recalled from Triage Doc. by RN): PATIENT C/O BODY ACHES AND SOA. REPORTS A POSITIVE COVID TEST ON 02/14 HEENT Symptoms (Recalled from RN notes): No Resp Symptoms (Recalled from RN notes): Yes Skin Symptoms (Recalled from RN notes): No MS Symptoms (Recalled from RN notes): No Functional Status (Recalled from RN notes): WNL History of Present Illness Provider Complaint: Patient states that she had COVID on 02/14 States that she has finished all her medication States that earlier she felt a little SOA earlier and having body aches States that she has RA and not been able to take her medication due to being sick and not sure if her RA is acting up or if she is still having symptoms from the COVID so she came in to get checked out Reports hx of COPD Related Data Home Medications Medication Instructions Recorded Confirmed albuterol sulfate 90 mcg/actuation 2 puff inhalation Q6H Asthma 07/08/17 02/13/22 aerosol inhaler (Ventolin HFA) aspirin 81 mg tablet,delayed 81 mg PO QDAY heart 07/08/17 02/13/22 release (Adult Low Dose Aspirin) folic acid 1 mg tablet 1 mg PO QDAY Supplement 07/08/17 02/13/22 cholecalciferol (vitamin D3) 100 4,000 unit PO BID Supplement 01/11/18 02/13/22 mcg (4,000 unit) capsule cetirizine 10 mg capsule (Zyrtec) 10 mg PO DAILY Allergy symptoms 04/28/18 02/13/22 fluticasone propionate 44 1 puff inhalation BID 03/30/20 02/13/22 mcg/actuation HFA aerosol inhaler (F
[2022-02-23 15:29] VITALS: BP 116/53; PULSE 84; RESP 20; TEMP 36.8; O2SAT 94
== END 2022-02-23 15:30 | disposition home or self-care (01) ==
PROVIDERS: Emergency Provider Nurse Practitioner; PCP Emergency Medicine
DX: U07.1 COVID-19 (principal); M79.10 Myalgia, unspecified site; R06.02 Shortness of breath; M06.9 Rheumatoid arthritis, unspecified; J44.9 Chronic obstructive pulmonary disease, unspecified
CPT/HCPCS: 71046; 99212; G0463

== ENCOUNTER 2022-05-04 09:03 | Emergency (ER) | payer MEDICARE, SELFPAY ==
[2022-05-04 09:40] VITALS: BP 143/76; PULSE 71; RESP 19; TEMP 36.7; O2SAT 97; BMI 33.8
[2022-05-04 10:01] LABS: UTC Influenza A Antigen Negative (Negative); UTC Influenza B Antigen Negative (Negative)
--- NOTE | 2022-05-04 10:18 | EXP.UTC ---
Discharge Plan Disposition Patient Disposition: Home, Self-Care Condition: Good Prescriptions Prescriptions: New prednisone [prednisone] 20 mg tablet 20 mg PO BID Qty: 10 0RF No Action aspirin [Adult Low Dose Aspirin] 81 mg tablet,delayed release (DR/EC) 81 mg PO QDAY folic acid 1 mg tablet 1 mg PO QDAY albuterol sulfate [Ventolin HFA] 90 mcg/actuation HFA aerosol inhaler 2 puff INHALATION Q6H Flovent HFA 44 mcg/actuation HFA aerosol inhaler 1 puff INHALATION BID Rx Instructions: administer with spacer sulfasalazine 500 mg tablet 0.5 g PO Label Comments: TAKE 2 TABLETS BY MOUTH TWICE DAILY methotrexate sodium (PF) 25 mg/mL solution 25 mg SQ cholecalciferol (vitamin D3) 4,000 unit capsule 4,000 unit PO BID Zyrtec 10 mg capsule 10 mg PO DAILY atorvastatin 40 mg tablet 40 mg PO DAILY fluticasone propionate [Flonase Allergy Relief] 50 mcg/actuation spray,suspension 50 mcg INTRANASAL DAILY Qty: 47.4 0RF bisoprolol fumarate 5 mg tablet 5 mg PO QDAY Qty: 90 3RF losartan 100 mg tablet 100 mg PO QDAY Qty: 90 2RF Paxlovid (EUA) 300 mg (150 mg x 2)-100 mg tablet See Rx Instructions .ROUTE .COMPLEX Qty: 30 0RF Rx Instructions: take TWO 150 mg tablets of nirmatrelvir with ONE 100 mg tablet of ritonavir twice daily for 5 days Stop statin X 5 days, stop Medrol Dose Pack GFR 55 methylprednisolone 4 mg Tablets,Dose Pack 4 mg PO DIRECTED Qty: 21 0RF guaifenesin [Mucinex] 600 mg tablet extended release 12hr 600 - 1,200 mg PO BIDP PRN (Reason: Congestion) Qty: 30 0RF azithromycin [Zithromax] 250 mg tablet 250 mg PO UD DOSE PK Qty: 6 0RF Rx Instructions: Take two (2) tablets today, then one (1) tablet days #2 thru #5 Referrals Follow up/Referrals: Lele Blanca MD [Primary Care Provider] - See instructions Activity Restrictions/Add. Instructions Additional Instructions/Restrictions: No sign of a bacterial infection. Likely viral. Viruses can take 7-14 days to run their course. Nasal saline and bulb syringe or nose Keri to remove nasal drainage to help with nasal congestion. Hard to eat, drink, sleep with nasal congestion so important to keep this cleaned out. Monitor temp. Tylenol or Motrin as needed for pain or fever Encourage fluids, water, Gatorade, Powerade, Pedialyte if /toddler/child Warm salt water gargles Warm fluids Sore throat lozenges Sleep elevated Humidifier/vaporizer Follow-up immediately for new or worsening symptoms or no noticeable improvement over the next 48-72 hours. Clinical Impressions Clinical Impression: Acute bronchitis Instructions Patient Instructions: DI for Acute Bronchitis Discharge ED Provider: Barry ([facility])[place] [facility] [place] Stated complaint: Cough, SOA, Congestion, drainage Mode of Arrival: Ambulatory Source of Information: Patient Limitations: No Limitations Time Seen by Provider: 05/04/22 10:18 Description of Symptoms (Recalled from Triage Doc. by RN): PATIENT C/O COUGH, SOA, AND CHEST CONGESTION X 2 DAYS HEENT Symptoms (Recalled from RN notes): No Resp Symptoms (Recalled from RN notes): Yes Skin Symptoms (Recalled from RN notes): No MS Symptoms (Recalled from RN notes): No Functional Status (Recalled from RN notes): WNL History of Present Illness Provider Complaint: 71 yr old female presents for cough, wheezing and chest congestion for 2 days Related Data Home Medications Medication Instructions Recorded Confirmed albuterol sulfate 90 mcg/actuation 2 puff inhalation Q6H Asthma 07/08/17 02/13/22 aerosol inhaler (Ventolin HFA) aspirin 81 mg tablet,delayed 81 mg PO QDAY heart 07/08/17 02/13/22 release (Adult Low Dose Aspirin) folic acid 1 mg tablet 1 mg PO QDAY Supplement 07/08/17 02/13/22 cholecalciferol (vitamin D3) 100 4,000 unit PO BID Supplement 01/11/18 02/13/22 mcg (4,000 unit) capsule christir
[2022-05-04 10:23] VITALS: BP 143/76; PULSE 71; RESP 19; TEMP 36.7; O2SAT 97
[2022-05-04 10:31] LABS: Adenovirus,PCR Not Detected (NotDetected); Bordetella Pertussis Not Detected (NotDetected); Chlamydophila Pneumoniae, PCR Not Detected (NotDetected); Coronavirus 19, PCR Not Detected (NotDetected); Coronavirus 229E Not Detected (NotDetected); Coronavirus NL63 Not Detected (NotDetected); Coronavirus OC43 Not Detected (NotDetected); Coronovirus HKU1,PCR Not Detected (NotDetected); Human Metapneumovirus Not Detected (NotDetected); Influenza A, PCR Not Detected (NotDetected); Influenza AH1, 2009 Not Detected (NotDetected); Influenza AH1, PCR Not Detected (NotDetected); Influenza AH3,PCR Not Detected (NotDetected); Influenza B, PCR Not Detected (NotDetected); Mycoplasma Pneumoniae, PCR Not Detected (NotDetected); Parainfluenza 1, PCR Not Detected (NotDetected); Parainfluenza 2, PCR Not Detected (NotDetected); Parainfluenza 3, PCR Not Detected (NotDetected); Parainfluenza 4, PCR Not Detected (NotDetected); Respiratory Syncytial Virus Not Detected (NotDetected)
[2022-05-04 13:06] LABS: Rhinovirus/Enterovirus Detected (NotDetected)
== END 2022-05-04 10:28 | disposition home or self-care (01) ==
PROVIDERS: Emergency Provider Nurse Practitioner Family; PCP Emergency Medicine
DX: J20.9 Acute bronchitis, unspecified (principal)
CPT/HCPCS: 87581; 87632; 87798; 87804; 99212; C9803; G0463; U0003; U0005

== ENCOUNTER 2022-05-20 08:50 | Emergency (ER) | payer MEDICARE, SELFPAY ==
--- NOTE | 2022-05-20 10:46 | XR_ITS ---
FINAL REPORT CLINICAL HISTORY: pain COMPARISON: 11/01/2019 FINDINGS: THORACIC SPINE Two views were obtained. There is no acute fracture. There is a mild chronic mid thoracic compression fracture which has minimally progressed. There is kyphosis without subluxation. The disc spaces are preserved. There is no soft tissue abnormality. IMPRESSION: Minimal progression of mild chronic mid thoracic compression fracture. Reviewed, Interpreted and Dictated by Zabrina Fuller MD Transcribed by Sara Jeong Authenticated and [facility]
--- NOTE | 2022-05-20 10:46 | XR_ITS ---
FINAL REPORT TECHNIQUE: Two views CLINICAL HISTORY: pain COMPARISON: 02/23/2022 FINDINGS: TWO-VIEW CHEST No acute pulmonary density is present. Mediastinal contour is normal. Heart size is stable. IMPRESSION: Stable chest exam without acute disease Reviewed, Interpreted and Dictated by Zabrina Fuller MD Transcribed by Sara Jeong Authenticated and [facility]
--- NOTE | 2022-05-20 10:47 | EXP.UTC ---
Discharge Plan Disposition Patient Disposition: Home, Self-Care Condition: Good Prescriptions Prescriptions: New benzonatate [benzonatate] 100 mg capsule 100 mg PO TIDP PRN (Reason: Cough) Qty: 30 0RF methylprednisolone 4 mg Tablets,Dose Pack 4 mg PO DIRECTED Qty: 21 0RF azithromycin [Zithromax] 250 mg tablet 250 mg PO UD DOSE PK Qty: 6 0RF Rx Instructions: Take two (2) tablets today, then one (1) tablet days #2 thru #5 No Action aspirin [Adult Low Dose Aspirin] 81 mg tablet,delayed release (DR/EC) 81 mg PO QDAY folic acid 1 mg tablet 1 mg PO QDAY albuterol sulfate [Ventolin HFA] 90 mcg/actuation HFA aerosol inhaler 2 puff INHALATION Q6H Flovent HFA 44 mcg/actuation HFA aerosol inhaler 1 puff INHALATION BID Rx Instructions: administer with spacer sulfasalazine 500 mg tablet 0.5 g PO Label Comments: TAKE 2 TABLETS BY MOUTH TWICE DAILY methotrexate sodium (PF) 25 mg/mL solution 25 mg SQ cholecalciferol (vitamin D3) 4,000 unit capsule 4,000 unit PO BID Zyrtec 10 mg capsule 10 mg PO DAILY atorvastatin 40 mg tablet 40 mg PO DAILY fluticasone propionate [Flonase Allergy Relief] 50 mcg/actuation spray,suspension 50 mcg INTRANASAL DAILY Qty: 47.4 0RF bisoprolol fumarate 5 mg tablet 5 mg PO QDAY Qty: 90 3RF losartan 100 mg tablet 100 mg PO QDAY Qty: 90 2RF Paxlovid (EUA) 300 mg (150 mg x 2)-100 mg tablet See Rx Instructions .ROUTE .COMPLEX Qty: 30 0RF Rx Instructions: take TWO 150 mg tablets of nirmatrelvir with ONE 100 mg tablet of ritonavir twice daily for 5 days Stop statin X 5 days, stop Medrol Dose Pack GFR 55 methylprednisolone 4 mg Tablets,Dose Pack 4 mg PO DIRECTED Qty: 21 0RF guaifenesin [Mucinex] 600 mg tablet extended release 12hr 600 - 1,200 mg PO BIDP PRN (Reason: Congestion) Qty: 30 0RF azithromycin [Zithromax] 250 mg tablet 250 mg PO UD DOSE PK Qty: 6 0RF Rx Instructions: Take two (2) tablets today, then one (1) tablet days #2 thru #5 prednisone [prednisone] 20 mg tablet 20 mg PO BID Qty: 10 0RF Referrals Follow up/Referrals: Lele Blanca MD [Primary Care Provider] - See instructions Activity Restrictions/Add. Instructions Additional Instructions/Restrictions: Drink plenty of fluids. Take tylenol or ibuprofen for pain or fever. Take the medications as directed. Follow up with your regular doctor GO TO THE ER FOR ANY WORSENING SYMPTOMS Don't start the oral steroids until tomorrow, since you had the shot here today. Clinical Impressions Clinical Impression: Acute bronchitis, Pleurisy Instructions Patient Instructions: Pleurisy, DI for Acute Bronchitis, DI for Pleurisy Discharge ED Provider: John Correa [facility] General Stated complaint: cough, pain ride side and back Time Seen by Provider: 05/20/22 10:47 History of Present Illness Provider Complaint: She states that for the past 2 days she has had a cough, congestion and right sided upper back pain with deep breathing and coughing. Related Data Home Medications Medication Instructions Recorded Confirmed albuterol sulfate 90 mcg/actuation 2 puff inhalation Q6H Asthma 07/08/17 02/13/22 aerosol inhaler (Ventolin HFA) aspirin 81 mg tablet,delayed 81 mg PO QDAY heart 07/08/17 02/13/22 release (Adult Low Dose Aspirin) folic acid 1 mg tablet 1 mg PO QDAY Supplement 07/08/17 02/13/22 cholecalciferol (vitamin D3) 100 4,000 unit PO BID Supplement 01/11/18 02/13/22 mcg (4,000 unit) capsule cetirizine 10 mg capsule (Zyrtec) 10 mg PO DAILY Allergy symptoms 04/28/18 02/13/22 fluticasone propionate 44 1 puff inhalation BID 03/30/20 02/13/22 mcg/actuation HFA aerosol inhaler (Flovent HFA) methotrexate sodium (PF) 25 mg/mL 25 mg SQ 03/09/21 02/13/22 injection solution sulfasalazine 500 mg tablet 0.5 g PO 03/09/21 02/13/22 at
[2022-05-20 11:09] VITALS: BP 175/65; PULSE 75; RESP 18; TEMP 36.4; O2SAT 96; BMI 34.9
[2022-05-20 11:32] VITALS: BP 175/65; PULSE 75; RESP 18; TEMP 36.4
== END 2022-05-20 11:33 | disposition home or self-care (01) ==
PROVIDERS: Emergency Provider Nurse Practitioner Family; PCP Emergency Medicine
DX: M54.6 Pain in thoracic spine (principal); R09.81 Nasal congestion; R05.9 Cough, unspecified; I11.9 Hypertensive heart disease without heart failure; I25.10 Atherosclerotic heart disease of native coronary artery without angina pectoris; E78.5 Hyperlipidemia, unspecified; G47.33 Obstructive sleep apnea (adult) (pediatric); J44.9 Chronic obstructive pulmonary disease, unspecified; Z79.51 Long term (current) use of inhaled steroids; Z79.52 Long term (current) use of systemic steroids; Z79.82 Long term (current) use of aspirin; Z79.899 Other long term (current) drug therapy
CPT/HCPCS: 71046; 72070; 96372; 99213; G0463

== ENCOUNTER 2023-02-12 19:49 | Emergency (ER) | payer MEDICARE, SELFPAY ==
[2023-02-12] VITALS (7 sets, daily range): BP systolic 130–163; BP diastolic 57–78; PULSE 66–80; RESP 14–22; TEMP 36.5; O2SAT 93–98; BMI 36.6
--- NOTE | 2023-02-12 19:56 | ECG_ITS ---
APPROVED REPORT Exam: Resting ECG HR:79 bpm ECG Measurements Heart Rate 79 AXES MN 146 P 67 QRSd 81 QRS 60 QT 351 T 75 QTc 385 Conclusion SINUS RHYTHM NONSPECIFIC T-WAVE ABNORMALITY BORDERLINE ECG UNCONFIRMED REPORT Electronically signed by : Jaden Newman MD 02/13/2023 15:30:15
--- NOTE | 2023-02-12 20:03 | XR_ITS ---
PROCEDURE INFORMATION: Exam: XR Chest Exam date and time: 02/12/2023 8:06 PM Age: 72 years old Clinical indication: Pain; Left-sided; Additional info: Cp TECHNIQUE: Imaging protocol: Radiologic exam of the chest. Views: 2 views. COMPARISON: CR XR CHEST 2V 20/05/2022 10:43 FINDINGS: Lungs: There is a new left perihilar opacity. Bilateral apical scarring. Pleural spaces: Unremarkable. No pleural effusion. No pneumothorax. Heart/Mediastinum: Borderline cardiomegaly. Vascular calcifications. Bones/joints: Unremarkable. IMPRESSION: There is a new left perihilar opacity, likely in the lingula. Please correlate for evidence of pneumonia. Follow-up chest radiographs to resolution is recommended to exclude underlying malignancy.
[2023-02-12 20:13] LABS: Basophils # 0.1 K/mm3 (0-0.2); Basophils % 0.7 % (0.1-2.0); Eosinophils # 0.5 K/mm3 (0.0-0.4); Eosinophils % 7.7 % (0.1-12.0); Hematocrit 41.4 % (37.0-47.0); Hemoglobin 13.3 g/dL (12.2-16.2); Lymphocytes # 2.3 K/mm3 (0.7-4.5); Lymphocytes % 34.6 % (10-50); Mean Corpuscular HGB Conc 32.1 g/dL (31.8-35.4); Mean Corpuscular Hemoglobin 32.6 pg (27.0-31.2); Mean Corpuscular Volume 101.6 fl (81-99); Mean Platelet Volume 9.8 fl (7.4-10.4); Monocytes # 0.5 K/mm3 (0.1-1.0); Monocytes % 7.6 % (1.7-9.3); Neutrophils # 3.3 K/mm3 (1.8-7.8); Neutrophils % 49.5 % (37.0-80.0); Platelet Count 207 K/mm3 (142-424); Red Blood Count 4.08 M/mm3 (4.20-5.40); Red Cell Distribution Width 15.2 % (11.5-17.5); White Blood Count 6.6 K/mm3 (4.8-10.8)
--- NOTE | 2023-02-12 20:14 | HMH.EDGENADL ---
Discharge Plan Disposition Patient Disposition: Home, Self-Care Prescriptions Prescriptions: No Action aspirin [Adult Low Dose Aspirin] 81 mg tablet,delayed release (DR/EC) 81 mg PO QDAY folic acid 1 mg tablet 1 mg PO QDAY sulfasalazine 500 mg tablet 0.5 g PO Patient Comments: TAKE 2 TABLETS BY MOUTH TWICE DAILY methotrexate sodium (PF) 25 mg/mL solution 25 mg SQ cholecalciferol (vitamin D3) 4,000 unit capsule 4,000 unit PO BID Zyrtec 10 mg capsule 10 mg PO DAILY albuterol sulfate 1.25 mg/3 mL solution for nebulization 1.25 mg inhalation QID PRN (Reason: shortness of breath or wheezing) Qty: 90 5RF albuterol sulfate [Ventolin HFA] 90 mcg/actuation HFA aerosol inhaler 2 puff INHALATION Q6H Qty: 8.5 5RF fluticasone propionate [Flovent HFA] 44 mcg/actuation HFA aerosol inhaler 1 puff inhalation BID Qty: 10.6 5RF benzonatate 200 mg capsule 200 mg PO TID PRN (Reason: cough) Qty: 30 0RF fluticasone propionate [Flonase Allergy Relief] 50 mcg/actuation spray,suspension 50 mcg INTRANASAL DAILY Qty: 47.4 0RF losartan 100 mg tablet 100 mg PO QDAY Qty: 90 2RF atorvastatin 80 mg tablet 80 mg PO HS Qty: 90 1RF bisoprolol fumarate 5 mg tablet 5 mg PO QDAY Qty: 90 3RF Referrals Follow up/Referrals: Lele Blanca MD [Primary Care Provider] - See instructions Activity Restrictions/Add. Instructions Additional Instructions/Restrictions: At this time is felt you are safe to be discharged home from the emergency department. If new or worsening symptoms please do not hesitate to return for continued evaluation. Please continue to follow-up with your counterperson for evaluation of your masslike consolidation on the left lung. Clinical Impressions Clinical Impression: Consolidation of left lower lobe of lung Discharge ED Provider: Lew Naranjo General Adult HPI General Chief complaint: Chest Pain Stated complaint: has had chest pain today Time Seen by Provider: 02/12/23 20:09 Mode of Arrival: Family Vehicle Source of Information: Patient Limitations: No Limitations Description of Symptoms (Recalled from ER Triage Doc. by RN): 72 yo female presents with a CC of all day left lateral pain that doesn't radiate, and wasn't present upon awakening. She states that she was not doing anything particularly stressful, physical or exerting prior to it beginning. Denies shortness of air, and when questioned regarding how she appeared to be dyspneic, she denied and said it was just her 'nerves'. PMH: copd,htn,tachycardia, seasonal allergies,hyperlipidemia. Patient denies any history of hiatal hernia or other hernias, ulcers, reflux. Reports only improves with 'burping'. History of Present Illness HPI narrative: Patient is a 72-year-old female with past medical history of rheumatoid arthritis, pulmonary polyp status post removal, COPD without oxygen requirement who presents to the emergency department for evaluation of chest pain. Onset was acute, waxing and waning throughout the day, left-sided, radiating up to the left shoulder anteriorly. Patient denies abdominal pain, other acute complaints at this time. Related Data Home Medications Medication Instructions Recorded Confirmed aspirin 81 mg tablet,delayed 81 mg PO QDAY heart 07/08/17 09/11/22 release (Adult Low Dose Aspirin) folic acid 1 mg tablet 1 mg PO QDAY Supplement 07/08/17 09/11/22 cholecalciferol (vitamin D3) 100 4,000 unit PO BID Supplement 01/11/18 09/11/22 mcg (4,000 unit) capsule cetirizine 10 mg capsule (Zyrtec) 10 mg PO DAILY Allergy symptoms 04/28/18 09/11/22 methotrexate sodium (PF) 25 mg/mL 25 mg SQ 03/09/21 09/11/22 injection solution sulfasalazine 500 mg tablet 0.5 g PO 03/09/21 09/11/22 Previous Rx's Medication Instructions Recorded fluticasone propionate 50 50 mcg intranasal DAILY Allergy 07/04/19 mcg/actuation nasal symptoms #47.4 mL spray,suspension (Flona
[2023-02-12 20:17] LABS: Alanine Aminotransferase 37 U/L (12-78); Albumin Level 4.4 g/dl (3.5-5.0); Albumin/Globulin Ratio 1.2 (1.1-1.8); Alkaline Phosphatase 114 U/L (38-126); Anion Gap 16.1 mEq/L (5-15); Aspartate Amino Transferase 51 U/L (14-36); Bilirubin,Total 0.4 mg/dl (0.2-1.3); Blood Urea Nitrogen 15 mg/dl (7-17); Calcium 9.1 mg/dl (8.4-10.2); Carbon Dioxide 25 mmol/L (22.0-30.0); Chloride 107 mmol/L (98-107); Creatinine Clearance Estimated 82 mL/min (50-200); Estimated Glomerular Filt Rate 55 ml/min (>60); GFR (African American) 66 ML/MIN (>60); Globulin 3.8 g/dL (1.3-3.2); Glucose 136 mg/dl (74-100); Potassium 4.1 mmoL/L (3.5-5.1); Sodium 144 mmol/L (136-145); Total Protein,Serum 8.2 g/dl (6.3-8.2)
[2023-02-12 20:29] LABS: NT Pro Brain Natriuretic Pep. 171 pg/mL (0-125); Troponin I < 0.01 ng/ml (0.00-0.034)
--- NOTE | 2023-02-12 22:16 | CT_ITS ---
PROCEDURE INFORMATION: Exam: CT Chest With Contrast; Diagnostic Exam date and time: 02/12/2023 10:30 PM Age: 72 years old Clinical indication: Pain; Left-sided; Additional info: HX pulm nodule/ L chest pain TECHNIQUE: Imaging protocol: Diagnostic computed tomography of the chest with contrast. Radiation optimization: All CT scans at this facility use at least one of these dose optimization techniques: automated exposure control; mA and/or kV adjustment per patient size (includes targeted exams where dose is matched to clinical indication); or iterative reconstruction. Contrast material: ISOVUE; Contrast volume: 75 ml; Contrast route: IV; REPORTING DATA: Count of CT and Cardiac NM exams in prior 12 months: This patient has received 0 known CTs and 0 known cardiac nuclear medicine studies in the 12 months prior to the current study. COMPARISON: CR XR CHEST 2V 12/02/2023 20:06 FINDINGS: Lungs: There is a 4 cm lingula masslike consolidation on image 34 series 3. Mild scarring and atelectasis in the lower lungs. Mild centrilobular and paraseptal emphysema. Multiple nonspecific pulmonary nodules. For follow-up purposes, examples include: 4 mm left upper lobe nodule image 24 series 3, 2.4 cm left lower lobe partially calcified nodule image 26 series 3, and 4 mm right upper lobe nodule image 32 series 3. Pleural spaces: Unremarkable. No pneumothorax. No pleural effusion. Heart: Mitral valve calcifications. Mild cardiomegaly. Coronary arteries: Mild coronary arterial calcification, indicating the presence of coronary artery disease. Lymph nodes: Unremarkable. No enlarged lymph nodes. Vasculature: The aorta demonstrates moderate atherosclerotic disease. Bones/joints: Unremarkable. No acute fracture. Soft tissues: Unremarkable. Other findings: Stigmata of old granulomatous disease. IMPRESSION: 1. There is a 4 cm lingula masslike consolidation on image 34 series 3. Pneumonia versus malignancy would be most likely. 2. Mild coronary arterial calcification, indicating the presence of coronary artery disease. If the patient has associated symptoms, recommend management as per chest pain guidelines. If the patient is asymptomatic, consider reviewing modifiable cardiovascular risk factors and managing as per guidelines for primary prevention.
--- NOTE | 2023-02-12 22:55 | PC.NURSE ---
pt resting in bed nothing needed at this time,call light at bs
[2023-02-12 23:45] LABS: Troponin I < 0.01 ng/ml (0.00-0.034)
[2023-02-13 00:12] VITALS: BP 131/63; PULSE 63; RESP 16; TEMP 36.5; O2SAT 95
--- NOTE | 2023-02-15 10:38 | PC.NURSE ---
1029- pts daughter called reports when in ER with pt seen by Dr. Naranjo reports there was discussion of lung mass vs pneumonia, states at that time pt was not coughing so was not prescribed medications. Reports she was told to call back if began coughing, states cough began yesterday. Notified Dr. Scanlon (ER MD on shift at this time) of the above, he reviewed pts chart, gave verbal orders for prescriptions for pt and to make sure pt has f/u for repeat xrays for resolution. Explained to pts daughter will call in prescriptions for pt for 2 antibiotics and to make sure pt has a repeat xray for f/u, pt daughter reports pt has an appt for february 26 pulmonology. Explained to pt daughter if symptoms worse or for any concerns have pt reevaluated in ER. Pt daughter verbalized understanding. augmentin 875 1 tab BID x7 day azithromycin 500 mg on day 1, 250 mg on days 2-5 called into [facility]
== END 2023-02-13 00:13 | disposition home or self-care (01) ==
PROVIDERS: Emergency Provider Emergency Medicine; PCP Emergency Medicine
DX: R07.9 Chest pain, unspecified (principal); J44.9 Chronic obstructive pulmonary disease, unspecified; M06.9 Rheumatoid arthritis, unspecified; I25.10 Atherosclerotic heart disease of native coronary artery without angina pectoris; E78.5 Hyperlipidemia, unspecified; I11.9 Hypertensive heart disease without heart failure; G47.33 Obstructive sleep apnea (adult) (pediatric); Z87.891 Personal history of nicotine dependence
CPT/HCPCS: 71046; 71260; 80053; 83880; 84484; 85025; 93005; 96374; 96375; 99285; Q9967

== ENCOUNTER 2023-07-20 09:07 | Outpatient (CLI) | payer MEDICARE, SELFPAY ==
[2023-07-20 09:28] LABS: Basophils % 0.4 % (0.1-2.0); Eosinophils # 0.2 K/mm3 (0.0-0.4); Eosinophils % 3.3 % (0.1-12.0); Hematocrit 41.3 % (37.0-47.0); Hemoglobin 13.8 g/dL (12.2-16.2); Lymphocytes # 1.6 K/mm3 (0.7-4.5); Lymphocytes % 21.4 % (10-50); Mean Corpuscular HGB Conc 33.3 g/dL (31.8-35.4); Mean Platelet Volume 10.7 fl (7.4-10.4); Monocytes # 0.4 K/mm3 (0.1-1.0); Monocytes % 5.5 % (1.7-9.3); Neutrophils % 69.3 % (37.0-80.0); Platelet Count 169 K/mm3 (142-424); Red Blood Count 4.31 M/mm3 (4.20-5.40); Red Cell Distribution Width 14.1 % (11.5-17.5); White Blood Count 7.3 K/mm3 (4.8-10.8)
[2023-07-20 09:56] LABS: Alanine Aminotransferase 32 U/L (12-78); Albumin Level 4.2 g/dl (3.5-5.0); Alkaline Phosphatase 93 U/L (38-126); Anion Gap 14.5 mEq/L (5-15); Aspartate Amino Transferase 44 U/L (14-36); Bilirubin, Conjugated 0.2 mg/dL (0.0-0.3); Bilirubin,Direct 0.5 mg/dl (0.0-0.4); Bilirubin,Total 0.5 mg/dl (0.2-1.3); Blood Urea Nitrogen 19 mg/dl (7-17); Calcium 9.5 mg/dl (8.4-10.2); Carbon Dioxide 24 mmol/L (22.0-30.0); Chloride 108 mmol/L (98-107); Chol/HDL Ratio 5.4 (1-3.5); Cholesterol 222 mg/dl (140-200); Estimated Glomerular Filt Rate 55 ml/min (>60); GFR (African American) 66 ML/MIN (>60); Glucose 147 mg/dl (74-100); HDL Cholesterol 41 mg/dl (40-60); Potassium 4.5 mmoL/L (3.5-5.1); Sodium 142 mmol/L (136-145); Total Protein,Serum 7.2 g/dl (6.3-8.2); Triglycerides 137 mg/dl (30-150); VLDL Cholesterol 27 mg/dL (0-40)
[2023-07-20 10:07] LABS: Direct LDL Cholesterol 126.37 mg/dL (100-129)
[2023-07-20 10:13] LABS: Free T4 (Free Thyroxine) 1.15 ng/dl (0.78-2.19)
[2023-07-20 10:27] LABS: Thyroid Stimulating Hormone 5.12 uIU/mL (0.465-4.68)
== END 2023-07-20 23:59 ==
LOC: LAB 09:08
PROVIDERS: PCP Physician Assistant; Visit Provider Nurse Practitioner
DX: E78.5 Hyperlipidemia, unspecified (principal); I10 Essential (primary) hypertension; I25.10 Atherosclerotic heart disease of native coronary artery without angina pectoris; R91.8 Other nonspecific abnormal finding of lung field; R94.31 Abnormal electrocardiogram [ECG] [EKG]; Z87.39 Personal history of other diseases of the musculoskeletal system and connective tissue
CPT/HCPCS: 36415; 80048; 80061; 80076; 83735; 84439; 84443; 85025

== ENCOUNTER 2023-07-29 08:01 | Outpatient (CLI) | payer MEDICARE, SELFPAY ==
--- NOTE | 2023-07-29 08:01 | CA_ITS ---
APPROVED REPORT EXAM: Comprehensive 2D, Doppler, and color-flow Echocardiogram Engineering Technical Specialist: Kat Duval RVT Ht: 5 ft 5 in Wt: 214lbs BSA: 2.04 BP: 158/69 mmHg Indications: CAD,MAGGIE,ABN EKG,COPD,EX SMOKER,HTN,HLD TDS-PT'S CHEST IS VERY SORE, BEST IMAGES POSSIBLE 2D Dimensions LA Volume 48.70 mL LA Volume Index 23.87 mL/m2 (M/F) 16-34 M-Mode Dimensions RVDd 1.74 cm (0.9-2.6) LA Diam 4.13 cm (1.9-4.0) LVDd 5.34 cm (3.5-5.7) LVDs 3.29 cm (3.5-5.7) IVSd 0.40 cm (0.6-1.1) PWd 0.76 cm (0.6-1.1) EF (Teich) 68.20% FS 38.40% EDV (Teich) 137.70 mL TAPSE 1.87 (<1.7) ESV (Teich) 43.80 mL LV Diastology E Decel Time 183 (160-240 msec) E/A Ratio 0.8 Aortic Valve MISHA Index 1.51 cm2/m2 AoV Peak Wagner. 136.0 (50-130 cm/s) AO Peak GR. 7.40 mmHg AO Mean GR. 3.80 (<5 mmHg) AO VTI 29.2 (18-25 cm) MISHA (VTI) 3.15 (2.5-4.5 cm2) Mitral Valve MV E Max Wagner. 89.0 (40-130 cm/s) MV A Velocity 110.0 (40-130 cm/s) E/A Ratio 0.81 MV PHT 54.0 ms Pulmonary Valve PV Peak Velocity 90.0 (50-150 cm/s) Tricuspid Valve TR P. Velocity 237.00 cm/s RAP Estimate 10.00 mmHg RVSP 32.50 mmHg Left Ventricle The left ventricle is normal size. The left ventricular systolic function is normal. The left ventricular ejection fraction is within the normal range. There is increased LV wall thickness. There is normal LV segmental wall motion. Transmitral Doppler flow pattern suggests impaired LV relaxation. LVEF is 55%. Right Ventricle The right ventricle is normal size. The right ventricular systolic function is normal. Atria The left atrium size is normal. The right atrium size is normal. There is no Doppler evidence of interatrial shunt. Aortic Valve The aortic valve is mildly thickened. There is no aortic valvular stenosis. No aortic regurgitation is present. Mitral Valve The mitral valve leaflets are mildly thickened. No evidence of mitral valve stenosis. Trace mitral regurgitation. Tricuspid Valve The tricuspid valve leaflets are thin and pliable. Mild tricuspid regurgitation. RVSP is 20-25 mmHg. Pulmonic Valve The pulmonary valve is normal in structure. Trace pulmonic regurgitation. Great Vessels The aortic root is normal in size. The aortic the ascending aorta is not well-visualized. IVC is normal in size and collapses >50% with inspiration. Pericardium There is no pericardial effusion. An epicardial fat pad is noted. Other Information Study Quality: Technically Difficult Conclusion Technically difficult study due to poor acoustic windows. Normal biventricular systolic function. Mild TR. Electronically signed by : Melba Castaneda MD 08/01/2023 23:27:00
== END 2023-07-29 23:59 ==
LOC: RT 08:01
PROVIDERS: PCP Physician Assistant; Visit Provider Nurse Practitioner
DX: E78.5 Hyperlipidemia, unspecified (principal); I11.9 Hypertensive heart disease without heart failure; I25.10 Atherosclerotic heart disease of native coronary artery without angina pectoris; R91.8 Other nonspecific abnormal finding of lung field; R94.31 Abnormal electrocardiogram [ECG] [EKG]; Z87.39 Personal history of other diseases of the musculoskeletal system and connective tissue
CPT/HCPCS: 93306

== ENCOUNTER 2023-09-06 11:58 | Emergency (ER) | payer MEDICARE, SELFPAY ==
[2023-09-06 12:25] VITALS: BP 141/86; PULSE 76; RESP 19; TEMP 36.7; O2SAT 95; BMI 38.6
--- NOTE | 2023-09-06 12:40 | EXP.UTC ---
Discharge Plan Disposition Patient Disposition: Home, Self-Care Condition: Good Prescriptions Prescriptions: New cefdinir 300 mg capsule 300 mg PO BID Qty: 20 0RF fluticasone propionate [Flonase Allergy Relief] 50 mcg/actuation spray,suspension 1 - 2 spray intranasal DAILY Qty: 16 0RF Rx Instructions: administer into each nostril daily benzonatate 100 mg capsule 100 mg PO TID PRN (Reason: cough) Qty: 30 0RF No Action aspirin [Adult Low Dose Aspirin] 81 mg tablet,delayed release (DR/EC) 81 mg PO QDAY folic acid 1 mg tablet 1 mg PO QDAY sulfasalazine 500 mg tablet 0.5 g PO Patient Comments: TAKE 2 TABLETS BY MOUTH TWICE DAILY prednisone 5 mg tablet PO Patient Comments: TAKE 1 TABLET BY MOUTH ONCE DAILY cholecalciferol (vitamin D3) 4,000 unit capsule 4,000 unit PO BID Zyrtec 10 mg capsule 10 mg PO DAILY albuterol sulfate 1.25 mg/3 mL solution for nebulization 1.25 mg inhalation QID PRN (Reason: shortness of breath or wheezing) Qty: 90 5RF albuterol sulfate [Ventolin HFA] 90 mcg/actuation HFA aerosol inhaler 2 puff INHALATION Q6H Qty: 8.5 5RF fluticasone propionate [Flovent HFA] 44 mcg/actuation HFA aerosol inhaler 1 puff inhalation BID Qty: 10.6 5RF naproxen 500 mg tablet 500 mg PO BID Qty: 30 0RF bisoprolol fumarate 5 mg tablet 5 mg PO QDAY Qty: 90 3RF losartan 100 mg tablet 100 mg PO QDAY Qty: 90 2RF atorvastatin 80 mg tablet 80 mg PO HS Qty: 90 1RF Referrals Follow up/Referrals: Faith Monet PA [Primary Care Provider] - See instructions Activity Restrictions/Add. Instructions Additional Instructions/Restrictions: Monitor Temp, Over the counter Motrin or Tylenol as directed/as needed Tylenol every 4 hours and Motrin every 6 hours (as long as your family doctor has told you that you can take it) for fever or pain. and straight to ER if unable to lower temp less than 101.0 after medication given *Warm salt water gargles may help to soothe the throat *Throat Lozenges? *Warm fluids like tea with honey may help to soothe the throat? *Sleep elevated *Humidifier/Vaporizer *Flonase 2 sprays in each nostril daily but be aware that it may take 2-3 days before you notice improvement Take medication as prescribed Follow up IMMEDIATELY for new or worsening symptoms or no Noticeable improvement over the next 48-72 hours. 911 for difficulty breathing or swallowing Clinical Impressions Clinical Impression: Otitis media Instructions Patient Instructions: Middle Ear Infection, Cough Discharge ED Provider: Jocelyn [place] [facility] [place] General Stated complaint: cough Mode of Arrival: Ambulatory Source of Information: Patient Limitations: No Limitations Time Seen by Provider: 09/06/23 12:40 Description of Symptoms (Recalled from Triage Doc. by RN): PATIENT C/O COUGH AND CHEST CONGESTION X 1 WEEK HEENT Symptoms (Recalled from RN notes): No Resp Symptoms (Recalled from RN notes): Yes Skin Symptoms (Recalled from RN notes): No MS Symptoms (Recalled from RN notes): No Functional Status (Recalled from RN notes): WNL History of Present Illness Provider Complaint: Patient states that for the last week she has been having pain and pressure in her right ear, cough and chest congestion but her cough is dry and worse at night when she tries to lay down States that she was worried she may have bronchitis so she came in to get checked Related Data Home Medications Medication Instructions Recorded Confirmed aspirin 81 mg tablet,delayed 81 mg PO QDAY heart 07/08/17 07/20/23 release (Adult Low Dose Aspirin) folic acid 1 mg tablet 1 mg PO QDAY Supplement 07/08/17 07/20/23 cholecalciferol (vitamin D3) 100 4,000 unit PO BID Supplement 01/11/18 07/20/23 mcg (4,000 unit) capsule cetirizine 10 mg capsule (Zyrtec) 10 mg PO DAILY Allergy symptoms 04/28/18 07/20/23 sulfasalazine 500 mg tablet 0.5 g PO 03/09/21 07/20/23 prednisone 5 mg tablet mg PO 07/20/23 07/20/23 Previous Rx's Medication Instructions Recorded albuterol sulfate 1.25 mg/3 mL 1.25 mg (3 mL) inhalation QID PRN 07/28/22 solution for nebulization shortness of breath or wheezing #90 mL albuterol sulfate 90 mcg/actuation 2 puff inhalation Q6H shortness of 07/28/22 aerosol inhaler (Ventolin HFA) breath or wheezing #8.5 grams fluticasone propionate 44 1 puff inhalation BID asthma #10.6 07/28/22 mcg/actuation HFA aerosol inhaler grams (Flovent HFA) bisoprolol fumarate 5 mg tablet 5 mg PO QDAY heart #90 tabs 12/18/22 naproxen 500 mg tablet 500 mg PO BID #30 tabs 05/13/23 atorvastatin 80 mg tablet 80 mg PO HS #90 tabs 07/13/23 losartan 100 mg tablet 100 mg PO QDAY bp #90 tabs 07/13/23 benzonatate 100 mg capsule 100 mg PO TID PRN cough #30 caps 09/06/23 cefdinir 300 mg capsule 300 mg PO BID #20 caps 09/06/23 fluticasone propionate 50 1 - 2 spray intranasal DAILY #16 09/06/23 mcg/actuation nasal grams spray,suspension (Flonase Allergy Relief) Allergies Allergy/AdvReac Type Severity Reaction Status Date / Time No Known Allergies Allergy Verified 07/20/23 08:41 Worker's Comp Is this a Worker's Comp case?: No [facility] Disclaimer: The information contained in this section may have been updated after the patient was seen, as this information can be updated by other users. Medical History (Updated 09/06/23 @ 12:51 by Jocelyn Bean APRN) Abnormal ECG Dyspnea on exertion Pulmonary emphysema History of rheumatoid arthritis Multiple lung nodules on CT Lung mass COPD (chronic obstructive pulmonary disease) Hypertension CAD (coronary artery disease) Cholelithiasis Personal history of immunosuppressive therapy Obstructive sleep apnea syndrome Hyperlipidemia Hypertensive heart disease Surgical History History of cholecystectomy Family History Other COPD (chronic obstructive pulmonary disease) Diabetes Heart attack Hypertension Stroke Social History Smoking Status: Former smoker second hand exposure: No alcohol intake: never substance use type: denies use current occupational status: retired Travel in the last 8 weeks: None household members: spouse housing: house caffeine: Yes ROS Obtained: Yes All systems reviewed & no additional complaints except as documented and Yes Systems reviewed as appropriate & no additional complaints except as documented Constitutional Constitutional: Reports system reviewed and no additional complaints, except as documented and Reports as per HPI ENT Ears, Nose, Mouth, and Throat: Reports system reviewed and no additional complaints, except as documented, Reports as per HPI and Reports otalgia Cardiovascular Cardiovascular: Reports system reviewed and no additional complaints, except as documented and Reports as per HPI Respiratory Respiratory: Reports system reviewed and no additional complaints, except as documented, Reports as per HPI, Denies shortness of breath, Reports chest congestion and Reports cough Physical Exam General General appearance: alert and in no apparent distress ENT ENT exam: Present mucous membranes moist Expanded ENT Exam TM/Canal exam: Right TM: erythema and bulging Throat exam: Present other (PND noted) Respiratory Respiratory exam: Present normal lung sounds bilaterally; Absent respiratory distress or wheezes Cardiovascular Cardiovascular exam: Present regular rate, normal rhythm and normal heart sounds Abdominal Exam Abdominal exam: Present soft and normal bowel sounds; Absent distention or tenderness Neurological Exam Neurological exam: Present alert, oriented X3 and normal gait Medical Decision Making Dylan Inquiry Pt receiving controlled substance: No Dylan was queried for this patient: No Vital Signs: 09/06/23 12:25 Temperature 98.1 F Temperature Source Oral Pulse Rate [Left Brachial] 76 Respiratory Rate 19 Blood Pressure [Left Arm] 141/86 H Blood Pressure Mean [Left Arm] 104 Blood Pressure Source [Left Arm] Automatic Cuff Blood Pressure Position [Left Arm] Sitting 02 Sat by Pulse Oximetry 95 Oxygen Delivery Method Room Air
[2023-09-06 12:57] VITALS: BP 141/86; PULSE 76; RESP 19; TEMP 36.7; O2SAT 95
== END 2023-09-06 13:05 | disposition home or self-care (01) ==
PROVIDERS: Emergency Provider Nurse Practitioner; PCP Physician Assistant
DX: H66.91 Otitis media, unspecified, right ear (principal); R05.9 Cough, unspecified; J43.9 Emphysema, unspecified; M06.9 Rheumatoid arthritis, unspecified; I11.9 Hypertensive heart disease without heart failure; I25.10 Atherosclerotic heart disease of native coronary artery without angina pectoris; G47.33 Obstructive sleep apnea (adult) (pediatric); E78.5 Hyperlipidemia, unspecified; Z87.891 Personal history of nicotine dependence
CPT/HCPCS: 99212; 99214; G0463

== ENCOUNTER 2024-02-03 10:50 | Outpatient (CLI) | payer MEDICARE, SELFPAY ==
[2024-02-03 11:16] LABS: Basophils % 0.8 % (0.1-2.0); Eosinophils # 0.2 K/mm3 (0.0-0.4); Eosinophils % 4.9 % (0.1-12.0); Hematocrit 33.7 % (37.0-47.0); Hemoglobin 11.7 g/dL (12.2-16.2); Mean Corpuscular HGB Conc 34.9 g/dL (31.8-35.4); Mean Corpuscular Hemoglobin 36.9 pg (27.0-31.2); Mean Corpuscular Volume 105.9 fl (81-99); Mean Platelet Volume 9.9 fl (7.4-10.4); Monocytes # 0.3 K/mm3 (0.1-1.0); Monocytes % 7.8 % (1.7-9.3); Neutrophils # 2.6 K/mm3 (1.8-7.8); Neutrophils % 62.5 % (37.0-80.0); Platelet Count 134 K/mm3 (142-424); Red Blood Count 3.18 M/mm3 (4.20-5.40); Red Cell Distribution Width 16.1 % (11.5-17.5); White Blood Count 4.2 K/mm3 (4.8-10.8)
[2024-02-03 11:41] LABS: Alanine Aminotransferase 36 U/L (12-78); Albumin Level 3.8 g/dl (3.5-5.0); Alkaline Phosphatase 89 U/L (38-126); Anion Gap 9.2 mEq/L (5-15); Aspartate Amino Transferase 51 U/L (14-36); Bilirubin,Direct 0.7 mg/dl (0.0-0.4); Bilirubin,Total 0.7 mg/dl (0.2-1.3); Blood Urea Nitrogen 11 mg/dl (7-17); Calcium 9.2 mg/dl (8.4-10.2); Carbon Dioxide 25 mmol/L (22.0-30.0); Chloride 113 mmol/L (98-107); Chol/HDL Ratio 5.2 (1-3.5); Cholesterol 217 mg/dl (140-200); Estimated Glomerular Filt Rate 55 ml/min (>60); GFR (African American) 66 ML/MIN (>60); Glucose 119 mg/dl (74-100); HDL Cholesterol 42 mg/dl (40-60); Magnesium 1.7 mg/dl (1.6-2.3); Potassium 4.2 mmoL/L (3.5-5.1); Sodium 143 mmol/L (136-145); Total Protein,Serum 6.7 g/dl (6.3-8.2); Triglycerides 165 mg/dl (30-150); VLDL Cholesterol 33 mg/dL (0-40)
[2024-02-03 11:52] LABS: Direct LDL Cholesterol 123.97 mg/dL (100-129)
[2024-02-03 11:58] LABS: Free T4 (Free Thyroxine) 1.02 ng/dl (0.78-2.19)
[2024-02-03 12:12] LABS: Thyroid Stimulating Hormone 2.58 uIU/mL (0.465-4.68)
== END 2024-02-03 23:59 | disposition home or self-care (01) ==
LOC: LAB 10:51
PROVIDERS: PCP Internal Medicine; Visit Provider Nurse Practitioner
DX: Z87.39 Personal history of other diseases of the musculoskeletal system and connective tissue (principal); R91.8 Other nonspecific abnormal finding of lung field; I25.10 Atherosclerotic heart disease of native coronary artery without angina pectoris; E78.2 Mixed hyperlipidemia; J45.909 Unspecified asthma, uncomplicated; Z87.891 Personal history of nicotine dependence; I11.9 Hypertensive heart disease without heart failure
CPT/HCPCS: 36415; 80048; 80061; 80076; 83735; 84439; 84443; 85025

== ENCOUNTER 2024-05-14 13:40 | Emergency (ER) | payer MEDICARE, SELFPAY ==
[2024-05-14 14:25] VITALS: BP 132/74; PULSE 74; RESP 19; TEMP 37; O2SAT 98; BMI 35.2
--- NOTE | 2024-05-14 14:39 | EXP.UTC ---
Discharge Plan Disposition Patient Disposition: Home, Self-Care Condition: Good Prescriptions Prescriptions: New prednisone 20 mg tablet 20 mg PO BID Qty: 10 0RF No Action atorvastatin 80 mg tablet 80 mg PO HS Patient Comments: TAKE 1 TABLET BY MOUTH AT BEDTIME NIGHTLY sulfasalazine 500 mg tablet 500 mg PO BID Patient Comments: TAKE 2 TABLETS BY MOUTH TWICE DAILY bisoprolol fumarate 5 mg tablet 5 mg PO DAILY Patient Comments: TAKE 1 TABLET BY MOUTH ONCE DAILY FOR HEART folic acid 1 mg tablet 1 mg PO DAILY Patient Comments: TAKE 1 TABLET BY MOUTH ONCE DAILY losartan 100 mg tablet 100 mg PO DAILY Patient Comments: TAKE 1 TABLET BY MOUTH ONCE DAILY FOR BLOOD PRESSURE methotrexate sodium (PF) 25 mg/mL solution 15 mg SQ WEEKLY Patient Comments: INJECT 0.6 ML SUBCUTANEOUSLY ONCE A WEEK , DISCARD THE REMAINING AMOUNT Referrals Follow up/Referrals: Juan Burgos DO [Primary Care Provider] - See instructions Activity Restrictions/Add. Instructions Additional Instructions/Restrictions: Tylenol and ibuprofen as needed for pain or fever Humidifier/vaporizer/hot steamy shower Follow-up with primary care tomorrow. Follow-up immediately in the ER of the [facility] for new or worsening symptoms or no noticeable improvement over the next 48-72 hours. Stop smoking Start steroids today. Helps with inflammation therefore coughing and wheezing. Follow directions on package. Clinical Impressions Clinical Impression: Acute bronchitis Instructions Patient Instructions: DI for Acute Bronchitis Print Language Print Language: Urdu Discharge ED Provider: Barry ([facility])[place] [facility] [place] General Stated complaint: cough Mode of Arrival: Ambulatory Source of Information: Patient Limitations: No Limitations Time Seen by Provider: 05/14/24 14:39 Description of Symptoms (Recalled from Triage Doc. by RN): PATIENT C/O RUNNY NOSE, SORE THROAT AND COUGH X 3 DAYS HEENT Symptoms (Recalled from RN notes): Yes Resp Symptoms (Recalled from RN notes): Yes Skin Symptoms (Recalled from RN notes): No MS Symptoms (Recalled from RN notes): No Functional Status (Recalled from RN notes): WNL History of Present Illness Provider Complaint: 73-year-old female presents for runny nose, sore throat, and a cough for 3 days. Related Data Home Medications ?Medication ?Instructions ?Recorded ?Confirmed atorvastatin 80 mg tablet 80 mg PO HS 05/14/24 05/14/24 bisoprolol fumarate 5 mg tablet 5 mg PO DAILY 05/14/24 05/14/24 folic acid 1 mg tablet 1 mg PO DAILY 05/14/24 05/14/24 losartan 100 mg tablet 100 mg PO DAILY 05/14/24 05/14/24 methotrexate sodium (PF) 25 mg/mL 15 mg SQ WEEKLY 05/14/24 05/14/24 injection solution sulfasalazine 500 mg tablet 500 mg PO BID 05/14/24 05/14/24 Previous Rx's ?Medication ?Instructions ?Recorded prednisone 20 mg tablet 20 mg PO BID #10 tabs 05/14/24 Allergies Allergy/AdvReac Type Severity Reaction Status Date / Time No Known Allergies Allergy Verified 02/03/24 10:22 Worker's Comp Is this a Worker's Comp case?: No PFS PFS Disclaimer: The information contained in this section may have been updated after the patient was seen, as this information can be updated by other users. Medical History , JEWEL WAXER) Abnormal ECG Dyspnea on exertion Pulmonary emphysema History of rheumatoid arthritis Multiple lung nodules on CT Lung mass COPD (chronic obstructive pulmonary disease) Hypertension CAD (coronary artery disease) Cholelithiasis Personal history of immunosuppressive therapy Obstructive sleep apnea syndrome Hyperlipidemia Hypertensive heart disease Surgical History , JEWEL WAXER) History of cholecystectomy Family History , JEWEL WAXER) Diabetes Heart attack COPD (chronic obstructive pulmonary disease) Hypertension Stroke Social History , JEWEL WAXER) Smoking Status: Former smoker second hand exposure: No alcohol intake: never substance use type: denies use current occupational status: retired household members: spouse housing: house caffeine: Yes ROS Obtained: Yes Systems reviewed as appropriate & no additional complaints except as documented Physical Exam General General appearance: alert and in no apparent distress ENT ENT exam: Present normal exam, normal oropharynx, mucous membranes moist and TM's normal bilaterally Respiratory Respiratory exam: Present wheezes Cardiovascular Cardiovascular exam: Present regular rate and normal rhythm Neurological Exam Neurological exam: Present alert and oriented X3 Skin Skin exam: Present warm and intact Medical Decision Making Medical Records Medical records reviewed: Yes I reviewed the patient's medical records. Screening: Per USPSTF and CDC recommendations, given the prevalence of disease in our region, it is our hospital?s policy to screen for HIV and viral Hepatitis for all patients aged 18 and over and those with ongoing risk factors. Dylan Inquiry Pt receiving controlled substance: No Dylan was queried for this patient: No Vital Signs: 05/14/24 14:25 Temperature 98.6 F Temperature Source Oral Pulse Rate [Left Brachial] 74 Respiratory Rate 19 Blood Pressure [Left Arm] 132/74 Blood Pressure Mean [Left Arm] 93 Blood Pressure Source [Left Arm] Automatic Cuff Blood Pressure Position [Left Arm] Sitting 02 Sat by Pulse Oximetry 98 Oxygen Delivery Method Room Air Lab Data Lab results reviewed: Yes I reviewed the patient's lab results.
[2024-05-14 14:51] LABS: UTC Strep Screen (Rapid) Negative (Negative)
[2024-05-14 15:09] VITALS: BP 132/74; PULSE 74; RESP 19; TEMP 37; O2SAT 98
== END 2024-05-14 15:14 | disposition home or self-care (01) ==
PROVIDERS: Emergency Provider Nurse Practitioner Family; PCP Internal Medicine
DX: J20.9 Acute bronchitis, unspecified (principal)
CPT/HCPCS: 87880; 99213; G0381

== ENCOUNTER 2024-05-25 08:45 | Outpatient (CLI) | payer MEDICARE, SELFPAY ==
[2024-05-25 17:53] LABS: Coronavirus 19, PCR Not Detected (NotDetected); Influenza A, PCR Not Detected (NotDetected); Influenza B, PCR Not Detected (NotDetected)
== END 2024-05-25 23:59 | disposition home or self-care (01) ==
LOC: LAB.DROPOF 05-26 09:44
PROVIDERS: PCP Internal Medicine; Visit Provider Internal Medicine
DX: R06.02 Shortness of breath (principal)
CPT/HCPCS: 87636

== ENCOUNTER 2024-07-25 10:48 | Outpatient (CLI) | payer MEDICARE, SELFPAY ==
[2024-07-25 11:14] LABS: Basophils % 0.7 % (0.1-2.0); Eosinophils # 0.4 K/mm3 (0.0-0.4); Eosinophils % 7.3 % (0.1-12.0); Hematocrit 36.1 % (37.0-47.0); Hemoglobin 12.1 g/dL (12.2-16.2); Lymphocytes # 1.5 K/mm3 (0.7-4.5); Lymphocytes % 25.3 % (10-50); Mean Corpuscular HGB Conc 33.5 g/dL (31.8-35.4); Mean Corpuscular Volume 98.4 fl (81-99); Mean Platelet Volume 12.3 fl (7.4-10.4); Monocytes # 0.5 K/mm3 (0.1-1.0); Monocytes % 9.2 % (1.7-9.3); Neutrophils # 3.4 K/mm3 (1.8-7.8); Neutrophils % 57.2 % (37.0-80.0); Platelet Count 146 K/mm3 (142-424); Red Blood Count 3.67 M/mm3 (4.20-5.40); Red Cell Distribution Width 13.9 % (11.5-17.5); White Blood Count 5.9 K/mm3 (4.8-10.8)
[2024-07-25 11:37] LABS: Alanine Aminotransferase 33 U/L (12-78); Albumin Level 4.1 g/dl (3.5-5.0); Alkaline Phosphatase 103 U/L (38-126); Aspartate Amino Transferase 42 U/L (14-36); Bilirubin,Direct 0.2 mg/dl (0.0-0.4); Bilirubin,Indirect 0.3 mg/dL (0.0-0.9); Bilirubin,Total 0.5 mg/dl (0.2-1.3); Bilirubin,Unconjugated 0.3 mg/dL (0.0-1.1); Estimated Glomerular Filt Rate 55 ml/min (>60); GFR (African American) 66 ML/MIN (>60); Total Protein,Serum 6.5 g/dl (6.3-8.2)
== END 2024-07-25 23:59 | disposition home or self-care (01) ==
LOC: LAB 10:51
PROVIDERS: PCP Nurse Practitioner Family; Visit Provider Nurse Practitioner Family
DX: I25.10 Atherosclerotic heart disease of native coronary artery without angina pectoris (principal); I11.9 Hypertensive heart disease without heart failure; E78.2 Mixed hyperlipidemia; Z79.899 Other long term (current) drug therapy
CPT/HCPCS: 36415; 80076; 82565; 85025

== ENCOUNTER 2024-08-19 08:06 | Outpatient (CLI) | payer MEDICARE, SELFPAY ==
[2024-08-19 08:54] LABS: Basophils % 0.9 % (0.1-2.0); Eosinophils # 0.3 K/mm3 (0.0-0.4); Eosinophils % 6.3 % (0.1-12.0); Hematocrit 40.2 % (37.0-47.0); Hemoglobin 13.1 g/dL (12.2-16.2); Lymphocytes # 1.3 K/mm3 (0.7-4.5); Mean Corpuscular HGB Conc 32.6 g/dL (31.8-35.4); Mean Corpuscular Hemoglobin 32.7 pg (27.0-31.2); Mean Corpuscular Volume 100.2 fl (81-99); Mean Platelet Volume 12.6 fl (7.4-10.4); Monocytes # 0.3 K/mm3 (0.1-1.0); Monocytes % 6.7 % (1.7-9.3); Neutrophils # 2.5 K/mm3 (1.8-7.8); Neutrophils % 56.9 % (37.0-80.0); Platelet Count 169 K/mm3 (142-424); Red Blood Count 4.01 M/mm3 (4.20-5.40); Red Cell Distribution Width 13.9 % (11.5-17.5); White Blood Count 4.3 K/mm3 (4.8-10.8)
[2024-08-19 09:10] LABS: Free T4 (Free Thyroxine) 1.02 ng/dl (0.78-2.19)
[2024-08-19 09:53] LABS: Alanine Aminotransferase 46 U/L (12-78); Albumin Level 4.5 g/dl (3.5-5.0); Alkaline Phosphatase 112 U/L (38-126); Anion Gap 10.3 mEq/L (5-15); Aspartate Amino Transferase 69 U/L (14-36); Bilirubin, Conjugated 0.1 mg/dL (0.0-0.3); Bilirubin,Direct 0.8 mg/dl (0.0-0.4); Bilirubin,Total 0.8 mg/dl (0.2-1.3); Bilirubin,Unconjugated 0.1 mg/dL (0.0-1.1); Blood Urea Nitrogen 17 mg/dl (7-17); Calcium 9.4 mg/dl (8.4-10.2); Carbon Dioxide 26 mmol/L (22.0-30.0); Chloride 108 mmol/L (98-107); Chol/HDL Ratio 4.1 (1-3.5); Cholesterol 155 mg/dl (140-200); Estimated Glomerular Filt Rate 55 ml/min (>60); GFR (African American) 66 ML/MIN (>60); Glucose 131 mg/dl (74-100); HDL Cholesterol 38 mg/dl (40-60); Magnesium 1.9 mg/dl (1.6-2.3); Potassium 4.3 mmoL/L (3.5-5.1); Sodium 140 mmol/L (136-145); Triglycerides 149 mg/dl (30-150); VLDL Cholesterol 30 mg/dL (0-40)
[2024-08-19 10:04] LABS: Direct LDL Cholesterol 78.61 mg/dL (100-129)
[2024-08-19 10:22] LABS: Thyroid Stimulating Hormone 3.81 uIU/mL (0.465-4.68)
== END 2024-08-19 23:59 | disposition home or self-care (01) ==
LOC: LAB 08:07
PROVIDERS: PCP Family Medicine; Visit Provider Nurse Practitioner
DX: I25.10 Atherosclerotic heart disease of native coronary artery without angina pectoris (principal); I11.9 Hypertensive heart disease without heart failure; E78.5 Hyperlipidemia, unspecified; R06.02 Shortness of breath; Z87.891 Personal history of nicotine dependence
CPT/HCPCS: 36415; 80048; 80061; 80076; 83735; 84439; 84443; 85025

== ENCOUNTER 2024-10-25 08:14 | Outpatient (CLI) | payer MEDICARE, SELFPAY ==
--- NOTE | 2024-10-25 08:24 | XR_ITS ---
FINAL REPORT CLINICAL HISTORY: cough x 2 weeks no surgery COMPARISON: 05/20/2022 FINDINGS: PA and lateral views of the chest were obtained. The cardiac and mediastinal silhouettes are within normal limits. A lingular opacity is present, that may represent atelectasis versus pneumonia. There is no pleural effusion or pneumothorax. No acute osseous abnormality is identified. IMPRESSION: Lingular opacity, atelectasis versus pneumonia. Recommend follow-up to resolution. Reviewed, Interpreted and Dictated by Lorenza Clements MD Transcribed by Shi Cross Authenticated and [facility]
== END 2024-10-25 23:59 | disposition home or self-care (01) ==
LOC: RAD 08:16
PROVIDERS: PCP Family Medicine; Visit Provider Student in an Organized Health Care Education/Training Program
DX: R05.9 Cough, unspecified (principal)
CPT/HCPCS: 71046

== ENCOUNTER 2024-11-02 08:57 | Outpatient (CLI) | payer MEDICARE, SELFPAY ==
--- NOTE | 2024-11-02 09:00 | XR_ITS ---
FINAL REPORT CLINICAL HISTORY: cough, pain x 2 weeks f/u COMPARISON: 05/20/2022 FINDINGS: CHEST 2 VIEWS PA AND LATERAL The heart is normal in size. The mediastinum is unremarkable. The lungs are clear. There is no pneumothorax. IMPRESSION: No acute process. Reviewed, Interpreted and Dictated by Cj Truong MD Transcribed by Naomi Larson Authenticated and [facility]
== END 2024-11-02 23:59 | disposition home or self-care (01) ==
LOC: RAD 08:58
PROVIDERS: PCP Family Medicine; Visit Provider Family Medicine
DX: J20.9 Acute bronchitis, unspecified (principal)
CPT/HCPCS: 71046